=== PATIENT | male | born 1960 | race Caucasian/White ===

== ENCOUNTER 2017-02-12 15:16 | Emergency (ER) | payer OTHER ==
[~2017-02-12] VITALS: Ht 193 cm; Wt 114.0 kg
[2017-02-12 15:47] VITALS: BP 156/83; PULSE 76; RESP 16; TEMP 99; O2SAT 97
[2017-02-12] MEDS ORDERED: DOXY100C PO (16:31)
[2017-02-12] MEDS ORDERED: TYLETAB34 PO (16:31)
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
[2017-02-12] MEDS ORDERED: GLIM4TAB PO (17:14)
[2017-02-12] MEDS ORDERED: PRED5TAB PO (17:14)
[2017-02-12] MEDS ORDERED: MYCO250 PO (17:14)
[2017-02-12] MEDS ORDERED: TACR5CAP PO (17:14)
== END 2017-02-12 17:18 | disposition home or self-care (01) ==
LOC: PHED 15:16
DX: T24.009A Burn of unspecified degree of unspecified site of unspecified lower limb, except ankle and foot, initial encounter (principal); X58.XXXA Exposure to other specified factors, initial encounter
CPT/HCPCS: 99284

== ENCOUNTER 2017-06-11 15:29 | Emergency (ER) | payer OTHER ==
[~2017-06-11] VITALS: Ht 193 cm; Wt 115.0 kg
[~2017-06-11 15:29] MED LIST: DOXY100C PO; GLIM4TAB PO; MYCO250 PO; PRED5TAB PO; TACR5CAP PO; TYLETAB34 PO
[2017-06-11 15:50] VITALS: BP 131/67; PULSE 112; RESP 16; TEMP 99.1; O2SAT 98
--- NOTE | 2017-06-11 16:44 | PD ---
HPI Chief Complaint: Cold / Flu Symptoms Time Seen by Provider: 16:27 Travel History International Travel<30 days: No Contact w/Intl Traveler<30days: No Traveled to known affect area: No History of Present Illness HPI 57yo M with PMH of kidney transplant 2001 on cellcept and tacrolimus, DM here with c/o fever of 101F today. Pt had generalized bodyaches and cough. + Dysuria. Also with abdominal pain yesterday and vomiting yesterday along with nonbloody diarrhea. Had headache earlier today that was relieved by tylenol at 1:30pm. Denies any chest pain, sob, focal weakness or numbness or visual changes. Pt took 1 dose of tamiflu and 1 dose of cipro today because his transplant team gave him the medication to start whenever he feels like he is having flu like symptoms and to come to the ED. Pt follows with transplant team from [facility] in [place]. PFSH Past Medical History Diabetes: Yes Patient Takes Glucophage: No Genitourinary: Yes (polycystic kidney disease, bilat nephrectomy, r kidne transplant) Inguinal Hernia: Yes (left) Implanted Vascular Access Dvce: Yes (pt had left lower arm fistula for dialysis ) Tetanus Vaccination: > 5 Years Influenza Vaccination: No Social History Alcohol Use: Yes (OCCASIONAL) Tobacco Use: No Substance Use: No Allergies-Medications (Allergen,Severity, Reaction): Coded Allergies: cefaclor (Verified Allergy, Unknown, Rash, 06/11/17) iodine (Verified Allergy, Unknown, 06/11/17) Reported Meds & Prescriptions Reported Meds & Active Scripts Active Tylenol (Acetaminophen) 325 Mg Tab 650 Mg PO Q6H PRN Tylenol-Codeine #3 (Acetaminophen-Codeine) 300-30 mg Tab 1 Tab PO Q6HR PRN Doxycycline Hyclate 100 Mg Cap 100 Mg PO BID Reported Prograf (Tacrolimus) 5 Mg Cap 5 Mg PO BID Prograf (Tacrolimus) 0.5 Mg Cap 0.5 Mg PO DAILY Sulfamethoxazole-Trimethoprim 800-160 Mg Tab 1 Tab PO BID Tacrolimus 5 Mg Cap 5 Mg PO Q12H Glimepiride 4 Mg Tab 4 Mg PO DAILY Take with breakfast or first main meal Cellcept (Mycophenolate Mofetil) 250 Mg Cap 750 Mg PO BID Prednisone 5 Mg Tab 5 Mg PO DAILY Review of Systems Except as stated in HPI: all other systems reviewed are Neg Physical Exam Narrative GENERAL: 57yo M in mild distress. SKIN: Focused skin assessment warm/dry. HEAD: Atraumatic. Normocephalic. EYES: Pupils equal and round. EOMI. ENT: No nasal bleeding or discharge. Mucous membranes pink and moist. NECK: No nuchal rigidity. CARDIOVASCULAR: Regular rate and rhythm. No murmur appreciated. RESPIRATORY: No accessory muscle use. Clear to auscultation. Breath sounds equal bilaterally. GASTROINTESTINAL: Abdomen soft, +TTP epigastric region. No rebound tenderness or guarding. MUSCULOSKELETAL: No obvious deformities. No clubbing. No cyanosis. No edema. NEUROLOGICAL: Awake and alert. No obvious cranial nerve deficits. Motor grossly within normal limits. Normal speech. PSYCHIATRIC: Appropriate mood and affect; insight and judgment normal. Data Data Last Documented VS Vital Signs Date Time Temp Pulse Resp B/P (MAP) Pulse Ox O2 Delivery O2 Flow Rate FiO2 06/11/17 19:49 91 18 133/73 (93) 99 06/11/17 19:02 Room Air 06/11/17 18:26 98.6 Orders Orders Blood Culture (06/11/17 16:38) Complete Blood Count With Diff (06/11/17 16:38) Basic Metabolic Panel (Bmp) (06/11/17 16:38) Act Partial Throm Time (Ptt) (06/11/17 16:38) Prothrombin Time / Inr (Pt) (06/11/17 16:38) Lactic Acid Sepsis Protocol (06/11/17 16:38) Urinalysis - C+S If Indicated (06/11/17 16:38) Chest, Single Ap (06/11/17 ) Ct Abd/Pel W/O Iv Contrast (06/11/17 ) Influenzae A/B Antigen (06/11/17 16:38) Sodium Chlor 0.9% 1000 Ml Inj (Ns 1000 M (06/11/17 16:45) Ed Discharge Order (06/11/17 19:37) Labs Laboratory Tests Test 06/11/17 17:00 06/11/17 18:40 White Blood Count 7.5 TH/MM3 Red Blood Count 5.36 MIL/MM3 Hemoglobin 15.8 GM/DL Hematocrit 47.4 % Mean Corpuscular Volume 88.4 FL Mean Corpuscular Hemoglobin 29.4 PG Mean Corpuscular Hemoglobin Concent 33.3 % Red Cell Distribution Width 13.9 % Platelet Count 131 TH/MM3 Mean Platelet Volume 9.4 FL Neutrophils (%) (Auto) 91.3 % Lymphocytes (%) (Auto) 2.8 % Monocytes (%) (Auto) 5.6 % Eosinophils (%) (Auto) 0.2 % Basophils (%) (Auto) 0.1 % Neutrophils # (Auto) 6.9 TH/MM3 Lymphocytes # (Auto) 0.2 TH/MM3 Monocytes # (Auto) 0.4 TH/MM3 Eosinophils # (Auto) 0.0 TH/MM3 Basophils # (Auto) 0.0 TH/MM3 CBC Comment DIFF FINAL Differential Comment Prothrombin Time 10.8 SEC Prothromb Time International Ratio 1.1 RATIO Activated Partial Thromboplast Time 26.8 SEC Blood Urea Nitrogen 30 MG/DL Creatinine 2.00 MG/DL Random Glucose 258 MG/DL Calcium Level 8.4 MG/DL Sodium Level 135 MEQ/L Potassium Level 4.1 MEQ/L Chloride Level 103 MEQ/L Carbon Dioxide Level 23.6 MEQ/L Anion Gap 8 MEQ/L Estimat Glomerular Filtration Rate 35 ML/MIN Lactic Acid Level 1.7 mmol/L Urine Color YELLOW Urine Turbidity CLEAR Urine pH 6.0 Urine Specific [place] 1.028 Urine Protein 100 mg/dL Urine Glucose (UA) 500 mg/dL Urine Ketones TRACE mg/dL Urine Occult Blood TRACE Urine Nitrite NEG Urine Bilirubin NEG Urine Leukocyte Esterase NEG Urine RBC 0-3 /hpf Urine WBC 0-2 /hpf Urine Squamous Epithelial Cells 0-5 /hpf Microscopic Urinalysis Comment CULT NOT INDICATED MDM Medical Decision Making Medical Screen Exam Complete: Yes Emergency Medical Condition: Yes Differential Diagnosis Influenza vs. pneumonia vs. UTI vs. colitis Narrative Course 57yo M with kidney transplant here with flu like symptoms. Temp is 99.1F here. Initially mildly tachycardic at 112. Labs reviewed, no leukocytosis. Mild thrombocytopenia at 131. No prior to compare. Lactic acid 1.7. BUN/ creatinine 30/2.0. Pt said his baseline is 1.7-1.9 so 2.0 is normal for him and he has had that before. Glucose elevated at 258. Normal anion gap. CT a/ p showed bilateral nephrectomy with transplant kidney in right side of pelvis. Low attenuation lesion in right lobe of liver that is nonspecific. Informed pt to follow up with outpatient studies. Pt given NS IVF and HR has improved to 87bpm. CXR negative. Influenza negative. UA negative for leukocyte. WBC 0- 2. Pt given NS IVF. Pt reevaluated at bedside and said he is feeling better. Pt has no fever here and it has been over 6 hours since he last took an antipyretic. He is nontoxic appearing and wants to go home. Pt tolerating PO. Strict return precautions given. Diagnosis Primary Impression: Dehydration Patient Instructions: General Instructions Departure Forms: Tests/Procedures Additional Instructions: Please follow up with a primary care physician in 2-3 days. Please return to the ED if you are having fever. Med/Other Pt SpecificInfo: Prescription(s) given Scripts Acetaminophen (Tylenol) 325 Mg Tab 650 MG PO Q6H Y for FEVER, #20 TAB 0 Refills Prov: Le Ledesma DO 06/11/17 Disposition: 01 DISCHARGE HOME Condition: Stable Le Ledesma DO Jun 11, 2017 16:44
[2017-06-11] MEDS ORDERED: SODIUM CHLOR 0.9% 1000 ML INJ 1,000 ML IV ONE (16:45)
--- NOTE | 2017-06-11 17:15 | RADRPT ---
EXAM DATE/TIME: 06/11/2017 16:52 [facility] COMPARISON: No previous studies available for comparison. INDICATIONS : Fever, cough. MEDICAL HISTORY : Polycystic kidney disease. SURGICAL HISTORY : Right kidney transplant. ENCOUNTER: Initial ACUITY: 1 day PAIN SCORE: 0/10 LOCATION: Bilateral chest FINDINGS: A single view of the chest demonstrates the lungs to be symmetrically aerated without evidence of mas s, infiltrate or effusion. The cardiomediastinal contours are unremarkable. Osseous structures are intact. CONCLUSION: No acute disease. There is no evidence of pneumonia. Michael Boles MD on June 11, 2017 at 17:12 Board Certified Radiologist. This report was verified electronically.
--- NOTE | 2017-06-11 17:24 | RADRPT ---
EXAM DATE/TIME: 06/11/2017 17:08 [facility] COMPARISON: No previous studies available for comparison. INDICATIONS : Epigastric pain and bodyache with vomiting and diarrhea. ORAL CONTRAST: No oral contrast ingested. RADIATION DOSE: 20.79 CTDIvol (mGy) MEDICAL HISTORY : Hernia, inguinal. Polycystic kidney disease. Diabetes. SURGICAL HISTORY : Nephrectomy, left. Nephrectomy, right.Right kidney transplant. ENCOUNTER: Initial ACUITY: 3 days PAIN SCALE: 4/10 LOCATION: upper quadrant abdomen TECHNIQUE: Volumetric scanning of the abdomen and pelvis was performed. Using automated exposure control and ad justment of the mA and/or kV according to patient size, radiation dose was kept as low as reasonably achievable to obtain optimal diagnostic quality images. DICOM format image data is available electro nically for review and comparison. FINDINGS: LOWER LUNGS: The visualized lower lungs are clear. LIVER: Homogeneous density with ill-defined low-attenuation lesion in the central right lobe of the liver me asuring up to approximately 4 cm. There is no dilation of the biliary tree. No calcified gallstones. SPLEEN: Normal size without lesion. PANCREAS: Within normal limits. KIDNEYS: The patient is status post bilateral nephrectomy with postsurgical changes and scarring. There is a t ransplant kidney in the right side of the pelvis is unremarkable on this noncontrast study. ADRENAL GLANDS: Within normal limits. VASCULAR: There is no aortic aneurysm. BOWEL/MESENTERY: The stomach, small bowel, and colon demonstrate no acute abnormality. Multiple diverticuli are prese nt greatest in the sigmoid colon. There is no free intraperitoneal air or fluid. ABDOMINAL WALL: Postsurgical changes are noted status post hernia repair. There is no evidence of recurrent hernia RETROPERITONEUM: There is no lymphadenopathy. BLADDER: No wall thickening or mass. REPRODUCTIVE: Within normal limits. INGUINAL: There is no lymphadenopathy or hernia. MUSCULOSKELETAL: Within normal limits for patient age. CONCLUSION: 1. Status post bilateral nephrectomy with transplant kidney in the right side of the pelvis. 2. Moderate diverticulosis with no inflammatory change. 3. Low attenuation lesion in the central right lobe of the liver which is nonspecific. This could rep resent a cavernous hemangioma or other lesion. Further evaluation with outpatient contrast-enhanced C T or MRI would be recommended. Michael Boles MD on June 11, 2017 at 17:18 Board Certified Radiologist. This report was verified electronically.
[2017-06-11 17:25] LABS: CALCIUM 8.4 MG/DL (8.5-10.1)
[2017-06-11 17:26] LABS: BICARBONATE 23.6 MEQ/L (21.0-32.0)
[2017-06-11 17:28] LABS: INTERNATIONAL NORMALIZED RATIO 1.1 RATIO; PROTHROMBIN TIME - PATIENT 10.8 SEC (9.8-11.6)
[2017-06-11 17:31] VITALS: BP 116/72; PULSE 87; RESP 16; TEMP 99.1; O2SAT 97
[2017-06-11 17:32] VITALS: BP 116/72; PULSE 87; RESP 16; TEMP 99.1; O2SAT 97
[2017-06-11 17:38] LABS: AUTOMATED NEUTROPHIL # 6.9 TH/MM3 (1.8-7.7); BASOPHIL % 0.1 % (0.0-2.0); EOSINOPHIL % 0.2 % (0.0-4.0); HEMATOCRIT 47.4 % (39.0-51.0); HEMOGLOBIN 15.8 GM/DL (13.0-17.0); LYMPH % 2.8 % (9.0-44.0); LYMPHOCYTE # 0.2 TH/MM3 (1.0-4.8); MEAN CELL VOLUME 88.4 FL (80.0-100.0); MEAN CORPUSCULAR HEMOGLOBIN 29.4 PG (27.0-34.0); MEAN CORPUSCULAR HGB CONC 33.3 % (32.0-36.0); MEAN PLATELET VOLUME 9.4 FL (7.0-11.0); MONO % 5.6 % (0.0-8.0); MONOCYTE # 0.4 TH/MM3 (0-0.9); NEUT % 91.3 % (16.0-70.0); PLATELET COUNT 131 TH/MM3 (150-450); RED BLOOD COUNT 5.36 MIL/MM3 (4.50-5.90); RED CELL DISTRIBUTION WIDTH 13.9 % (11.6-17.2); WHITE BLOOD COUNT 7.5 TH/MM3 (4.0-11.0)
[2017-06-11] MEDS ORDERED: TACR0.5 PO (17:58)
[2017-06-11] MEDS ORDERED: SULF1TAB23 PO (17:58)
[2017-06-11] MEDS ORDERED: TACR5 PO (17:58)
[2017-06-11 18:26] VITALS: BP 144/75; PULSE 85; RESP 16; TEMP 98.6; O2SAT 96
[2017-06-11 19:02] VITALS: BP 133/77; PULSE 84; RESP 18; O2SAT 98
[2017-06-11 19:06] LABS: BILIRUBIN, URINE NEG (NEG); BLOOD, URINE TRACE (NEG); GLUCOSE,URINE 500 mg/dL (NEG); KETONE, URINE TRACE mg/dL (NEG); NITRITE,URINE NEG (NEG); URINE LEUKOCYTE ESTERASE NEG (NEG)
[2017-06-11 19:22] LABS: RBC, URINE 0-3 /hpf (0-3); SQUAMOUS EPITHELIAL CELL URINE 0-5 /hpf (0-5); URINE COLOR YELLOW (YELLW/STRAW); WBC, URINE 0-2 /hpf (0-5)
[2017-06-11] MEDS ORDERED: TYLE325T PO (19:37)
[2017-06-11 19:49] VITALS: BP 133/73
== END 2017-06-11 20:04 | disposition home or self-care (01) ==
LOC: PHED 15:29
DX: E86.0 Dehydration (principal); E11.9 Type 2 diabetes mellitus without complications; Q61.3 Polycystic kidney, unspecified; Z90.5 Acquired absence of kidney; Z94.0 Kidney transplant status; Z99.2 Dependence on renal dialysis; Z88.8 Allergy status to other drugs, medicaments and biological substances; Z79.899 Other long term (current) drug therapy
CPT/HCPCS: 71045; 74176; 80048; 81001; 83605; 85025; 85610; 85730; 87040; 87804; 96360; 99285; J7030

== ENCOUNTER 2018-04-29 00:19 | Inpatient (IN) ==
[2018-04-29] MEDS ORDERED: Acetaminophen 325 MG Tablet PO ONE (01:01)
[2018-04-29] MEDS ORDERED: Sod Chloride 0.9% Inj 1,000 ML IV.SIG SCH (01:15)
--- NOTE | 2018-04-29 01:31 | XR ---
EXAM DATE: 04/29/2018 1:19 AM EST AGE/SEX: 58 years / Male INDICATIONS: Fever and cough. CLINICAL DATA: This is the patient's initial encounter. Patient reports that signs and symptoms have been present for 1 week and indicates a pain score of 0/10. MEDICAL/SURGICAL HISTORY: None. None. COMPARISON: [facility], CHEST SINGLE AP, 06/11/2017. . FINDINGS: A single AP view of the chest demonstrates the lungs to be symmetrically aerated without evidence of mass, infiltrate or effusion. The cardiomediastinal contours are unremarkable. Osseous structures a re intact. CONCLUSION: The lungs are clear. Electronically signed by: Chalo Guillen MD Board Certified Radiologist 04/29/2018 1:30 AM EST
[2018-04-29 01:42] LABS: Bilirubin,Urine Negative (Negative); Clarity,Urine Clear (Clear); Color,Urine Yellow (Yellw/Straw); Leukocyte Esterase,Urine Negative (Negative); Nitrite,Urine Negative (Negative); Urobilinogen,Urine 0.2 mg/dL (Less than 2)
[2018-04-29 01:43] LABS: Baso # (Auto) 0.1 th/mm3 (0.0-0.2); Baso % (Auto) 1.9 % (0.0-2.0); Eos % (Auto) 0.2 % (0.0-4.0); Hematocrit 39.6 % (39.0-51.0); Lymph # (Auto) 0.2 th/mm3 (1.0-4.8); Lymph % (Auto) 4.5 % (9.0-44.0); Mean Corpuscular HGB Conc 32.9 % (32.0-36.0); Mean Corpuscular Hemoglobin 28.1 pg (27.0-34.0); Mean Corpuscular Volume 85.6 fL (80.0-100.0); Mean Platelet Volume 9.3 fL (7.0-11.0); Mono # (Auto) 0.3 th/mm3 (0.0-0.9); Mono % (Auto) 5.2 % (0.0-8.0); Neut # (Auto) 4.9 th/mm3 (1.8-7.7); Neut % (Auto) 88.2 % (16.0-70.0); Platelet Count 207 th/mm3 (150-450); Red Blood Count 4.63 mil/mm3 (4.50-5.90); Red Cell Distribution Width 13.5 % (11.6-17.2); White Blood Count 5.5 th/mm3 (4.0-11.0)
[2018-04-29 01:53] LABS: Squamous Epithelial Cell,Urine 0-5 /hpf (0-5); WBC,Urine 0-5 /hpf (0-5)
[2018-04-29 02:24] LABS: Chloride 99 meq/L (98-107); Potassium 4.2 meq/L (3.5-5.1); Sodium 131 meq/L (136-145)
[2018-04-29 02:28] LABS: Albumin 2.9 g/dL (3.4-5.0); Anion Gap 10 meq/L (5-15); Blood Urea Nitrogen 24 mg/dL (7-18); Calcium 7.7 mg/dL (8.5-10.1); Carbon Dioxide 21.6 meq/L (21.0-32.0); Glucose,Random 299 mg/dL (74-106); Magnesium 1.8 mg/dL (1.5-2.5)
[2018-04-29 02:31] LABS: Alanine Aminotransferase 34 U/L (12-78); Aspartate Aminotransferase 21 U/L (15-37); Glomerular Filtration Rate 30 mL/min (>89)
[2018-04-29 02:33] LABS: Total Protein 6.3 g/dL (6.4-8.2)
[2018-04-29 02:34] LABS: Activated Partial Thrombo Time 30.8 sec (23.4-31.7); Alkaline Phosphatase 102 U/L (45-117); INR 1.1 Ratio; Prothrombin Time 11.1 sec (9.8-11.6)
[2018-04-29 02:35] LABS: Creatine Kinase 62 U/L (39-308)
[2018-04-29 02:57] LABS: Troponin I 1.11 ng/mL (0.02-0.05)
[2018-04-29] MEDS: Sod Chloride 0.9% Inj 1,000 ML IV.SIG SCH ×2 (03:07→05:05)
[2018-04-29] MEDS ORDERED: Mycophenolate Mofetil 250 MG Capsule PO ONE (03:10)
[2018-04-29] MEDS ORDERED: Bisacodyl 10 MG Supp RECTAL PRN (03:39)
[2018-04-29] MEDS ORDERED: Morphine Inj 4 MG/ML Vial IV.PUSH PRN (03:40)
[2018-04-29] MEDS ORDERED: Dextrose 50% in Water 50 ML Vial IV.PUSH PRN ×2 (03:41→12:56)
[2018-04-29] MEDS ORDERED: Sod Chloride 0.9% Inj 1,000 ML IV.CONT SCH (03:45)
--- NOTE | 2018-04-29 03:51 | ED ---
HPI General Chief Complaint: Fever Stated Complaint: FEVER X1 WK Time Seen by Provider: 04/29/18 01:01 Source: patient Mode of arrival: ambulatory History of Present Illness HPI Narrative: 58-year-old male presents to the emergency department for complaint of fever chills cough and congestion. Patient has had symptoms times 1 week. Patient states he recently traveled to [place] and during that trip suffered a myocardial infarction. Patient underwent cardiac catheterization with angioplasty and stent placement. Patient subsequently identified that he developed a cough and fever went to have another hospital after he had been discharged and evaluation there showed no source of fever and patient was discharged with paperwork. Patient continued to have ongoing and worsening symptoms and presents at this time for fever that awakened him from sleep. Patient has not had any recurrence of his crushing chest pain that he experienced approximately 10 days ago associated with his myocardial infarction. Patient was told that time that he had very high troponin level. Patient also reports that he is diabetic and is a renal transplant recipient. Patient states that because of persistent and worsening fever presents now for further variation. Patient has had cough that is primarily nonproductive does not recall any yellow-green sputum production has had some sinus drainage no shortness of breath no pleuritic chest pain. Patient does not report nausea vomiting abdominal pain or diarrhea. Patient's had no dysuria frequency urgency or flank pain. Patient has been taking acetaminophen for fever control but will not take NSAIDs due to his renal transplant. MD complaint: Reports fever and weakness Onset (ago): week(s) (1) Maximum Temperature: 103 F Temperature Source: oral Context: Reports recent travel, recent procedure and on immunosuppressant(s) ( renal transplant 2001 --ceelcept prograf); Denies other(s) with similar symptoms , recent antibiotic use and on chemotherapy Associated symptoms: Reports chills, nasal congestion and cough; Denies rigors, myalgias, headache, rhinorrhea, sore throat, stiff neck, chest pain, shortness of breath, abdominal pain, nausea, vomiting, diarrhea, dysuria, rash, confusion , night sweats and weight loss Relieving factors: acetaminophen Exacerbating factors: nothing Treatments prior to arrival fever: Reports acetaminophen Related Data Home Medications Medication Instructions Recorded Confirmed aspirin 81 mg PO DAILY 04/29/18 04/29/18 atorvastatin 80 mg PO QPM 04/29/18 04/29/18 clopidogrel [Plavix] 75 mg PO DAILY 04/29/18 04/29/18 glimepiride 1 mg PO QID 04/29/18 04/29/18 insulin degludec [Tresiba 10 unit SUBCUT DAILY 04/29/18 04/29/18 FlexTouch U-100] metoprolol tartrate 50 mg PO DAILY 04/29/18 04/29/18 multivitamin 1 cap PO QAM 04/29/18 04/29/18 mycophenolate mofetil [CellCept] 750 mg PO BID 04/29/18 04/29/18 prednisone 5 mg PO DAILY 04/29/18 04/29/18 tacrolimus [Prograf] 5 mg PO Q12H 04/29/18 04/29/18 Allergies Allergy/AdvReac Type Severity Reaction Status Date / Time cefaclor Allergy Unknown Rash Verified 04/29/18 00:38 iodine Allergy Unknown Flushing Verified 04/29/18 00:38 Review of Systems ROS: all other systems reviewed are negative PMFSH History History Provided By: Patient ( recent myocardial infarction with angioplasty and stent placementMI, polycystic kidney, diabetes) Medical History Medical History Hx of myocardial infarction (Acute) Surgical History Surgical History H/O angioplasty (Acute) Hx of kidney transplant (Acute) Stented coronary artery (Acute) Social History Social History Substance History: No History of Abuse Second Hand Smoke Exposure: No Smoking Status: Never smoker How Often Do You Have a Drink Containing Alcohol: Never Recent Travel in [facility] within the Last 8 Weeks: Yes Recent Out of Country Travel within the Last 8 Weeks: No Immunization History Tetanus Immunization: Unsure Exam Narrative Exam Narrative: GENERAL: Well-nourished, well-developed patient, no acute distress no respiratory distress with temperature 101.4F SKIN: Focused skin assessment warm/dry. HEAD: Normocephalic. EYES: No scleral icterus. No injection or drainage. NECK: Supple, trachea midline. No JVD or lymphadenopathy. CARDIOVASCULAR: Regular rate and rhythm without murmurs, gallops, or rubs. RESPIRATORY: Breath sounds equal bilaterally. No accessory muscle use. GASTROINTESTINAL: Abdomen soft, non-tender, nondistended. MUSCULOSKELETAL: No cyanosis, or edema. BACK: Nontender without obvious deformity. No CVA tenderness. Course Initial Documented Vital Signs Temperature 101.4 F H 04/29/18 00:39 Pulse Rate 92 H 04/29/18 00:39 Respiratory Rate 20 04/29/18 00:39 Blood Pressure 153/88 H 04/29/18 00:39 Pulse Oximetry 95 04/29/18 00:39 Last Documented Vital Signs Temperature 103.0 F H 04/29/18 02:35 Pulse Rate 93 H 04/29/18 02:35 Respiratory Rate 18 04/29/18 02:35 Blood Pressure 100/62 04/29/18 02:35 Pulse Oximetry 100 04/29/18 02:35 Medical Decision Making MDM Narrative Medical decision making narrative: Patient placed on monitor IV access obtained specimens collected and sent for resulting patient administered IV fluids p.o. Tylenol and after cultures obtained IV antibiotics CBC with automated differential patient does show left shift by automated differential normal total white cell count chemistries show worsening renal function patient states baseline creatinine is 1.8 currently 2.3 urinalysis shows glucosuria but no obvious source of infection and chest x-ray shows no lobar infiltrate EKG sinus rhythm with nonspecific ischemic changes no acute no acute ST elevation, patient status post recent W[place] and reports very elevated troponin levels present troponin is 1.11 most likely consistent with trending downward troponin level CK is in normal range at 62 patient has no current chest pain and states no symptoms at this time consistent with previous recent WV. Lactic acid is not elevated at 1.2; repeat temperature has increased to 103 F Patient's case discussed with medicine service regarding admission for ongoing IV antibiotic. Medical Screen Exam Complete: Yes Emergency Medical Condition: Yes Differential Diagnosis Differential Diagnosis: Febrile illness, viral syndrome, influenza, pneumonia, sinusitis, UTI, sepsis, angina, WV, dehydration, uncontrolled diabetes Medical Records Medical records reviewed: Yes I reviewed the patient's medical records. Lab Data Lab results reviewed: Yes I reviewed the patient's lab results. Result diagrams: 04/29/18 01:14 04/29/18 02:10 Lab Results 04/29/18 04/29/18 04/29/18 Range/Units 01:14 01:14 02:10 CBC w Diff Auto diff final WBC 5.5 (4.0-11.0) th/mm3 RBC 4.63 (4.50-5.90) mil/mm3 Hgb 13.0 (13.0-17.0) gm/dL Hct 39.6 (39.0-51.0) % MCV 85.6 (80.0-100.0) fL MCH 28.1 (27.0-34.0) pg MCHC 32.9 (32.0-36.0) % RDW 13.5 (11.6-17.2) % Plt Count 207 (150-450) th/mm3 MPV 9.3 (7.0-11.0) fL Neut % (Auto) 88.2 H (16.0-70.0) % Lymph % (Auto) 4.5 L (9.0-44.0) % Hudson % (Auto) 5.2 (0.0-8.0) % Eos % (Auto) 0.2 (0.0-4.0) % Baso % (Auto) 1.9 (0.0-2.0) % Neut # (Auto) 4.9 (1.8-7.7) th/mm3 Lymph # (Auto) 0.2 L (1.0-4.8) th/mm3 Hudson # (Auto) 0.3 (0.0-0.9) th/mm3 Eos # (Auto) 0.0 (0.0-0.4) th/mm3 Baso # (Auto) 0.1 (0.0-0.2) th/mm3 WBC Differential . Differential Comment . PT 11.1 (9.8-11.6) sec INR 1.1 Ratio APTT 30.8 (23.4-31.7) sec Sodium (136-145) meq/L Potassium (3.5-5.1) meq/L Chloride (98-107) meq/L Carbon Dioxide (21.0-32.0) meq/L Anion Gap (5-15) meq/L BUN (7-18) mg/dL Creatinine (0.60-1.30) mg/dL Estimated GFR (>89) mL/min Random Glucose (74-106) mg/dL Lactic Acid (0.4-2.0) mmol/L Calcium (8.5-10.1) mg/dL Magnesium (1.5-2.5) mg/dL Total Bilirubin (0.2-1.0) mg/dL AST (15-37) U/L ALT (12-78) U/L Alkaline Phosphatase (45-117) U/L Total Creatine Kinase (39-308) U/L Troponin I (0.02-0.05) ng/mL Total Protein (6.4-8.2) g/dL Albumin (3.4-5.0) g/dL Urine Color Yellow (Yellw/Straw) Urine Clarity Clear (Clear) Urine pH 6.0 (5.0-8.5) Ur Specific Cullen 1.010 (1.002-1.035) Urine Protein 30 H (Neg-Trace) mg/dL Urine Glucose (UA) 1000 or greater H (Negative) mg/dL Urine Ketones Negative (Negative) mg/dL Urine Occult Blood Small H (Negative) Urine Nitrate Negative (Negative) Urine Bilirubin Negative (Negative) Urine Urobilinogen 0.2 (Less than 2) mg/dL Ur Leukocyte Esterase Negative (Negative) Urine RBC 4-15 H (0-3) /hpf Urine WBC 0-5 (0-5) /hpf Ur Squamous Epith Cells 0-5 (0-5) /hpf Micro UA Comment Culture not ind Ur Microscopic Review Microscopic reviewed Urine Culture Comments Culture not ind 04/29/18 04/29/18 Range/Units 02:10 02:10 CBC w Diff WBC (4.0-11.0) th/mm3 RBC (4.50-5.90) mil/mm3 Hgb (13.0-17.0) gm/dL Hct (39.0-51.0) % MCV (80.0-100.0) fL MCH (27.0-34.0) pg MCHC (32.0-36.0) % RDW (11.6-17.2) % Plt Count (150-450) th/mm3 MPV (7.0-11.0) fL Neut % (Auto) (16.0-70.0) % Lymph % (Auto) (9.0-44.0) % Hudson % (Auto) (0.0-8.0) % Eos % (Auto) (0.0-4.0) % Baso % (Auto) (0.0-2.0) % Neut # (Auto) (1.8-7.7) th/mm3 Lymph # (Auto) (1.0-4.8) th/mm3 Hudson # (Auto) (0.0-0.9) th/mm3 Eos # (Auto) (0.0-0.4) th/mm3 Baso # (Auto) (0.0-0.2) th/mm3 WBC Differential Differential Comment PT (9.8-11.6) sec INR Ratio APTT (23.4-31.7) sec Sodium 131 L (136-145) meq/L Potassium 4.2 (3.5-5.1) meq/L Chloride 99 (98-107) meq/L Carbon Dioxide 21.6 (21.0-32.0) meq/L Anion Gap 10 (5-15) meq/L BUN 24 H (7-18) mg/dL Creatinine 2.30 H (0.60-1.30) mg/dL Estimated GFR 30 L (>89) mL/min Random Glucose 299 H (74-106) mg/dL Lactic Acid 1.2 (0.4-2.0) mmol/L Calcium 7.7 L (8.5-10.1) mg/dL Magnesium 1.8 (1.5-2.5) mg/dL Total Bilirubin 0.7 (0.2-1.0) mg/dL AST 21 (15-37) U/L ALT 34 (12-78) U/L Alkaline Phosphatase 102 (45-117) U/L Total Creatine Kinase 62 (39-308) U/L Troponin I 1.11 H* (0.02-0.05) ng/mL Total Protein 6.3 L (6.4-8.2) g/dL Albumin 2.9 L (3.4-5.0) g/dL Urine Color (Yellw/Straw) Urine Clarity (Clear) Urine pH (5.0-8.5) Ur Specific Cullen (1.002-1.035) Urine Protein (Neg-Trace) mg/dL Urine Glucose (UA) (Negative) mg/dL Urine Ketones (Negative) mg/dL Urine Occult Blood (Negative) Urine Nitrate (Negative) Urine Bilirubin (Negative) Urine Urobilinogen (Less than 2) mg/dL Ur Leukocyte Esterase (Negative) Urine RBC (0-3) /hpf Urine WBC (0-5) /hpf Ur Squamous Epith Cells (0-5) /hpf Micro UA Comment Ur Microscopic Review Urine Culture Comments Imaging Data Radiologist's impression: Chest X-Ray 04/29/18 01:01 CONCLUSION: The lungs are clear. ECG Data EKG Prior to Arrival: No Attestation: I personally reviewed and interpreted this ECG as follows: (EKG: sinus rhythm rate 100 w/ lateral ST-T changes no ST elevation) Discharge Plan Discharge Disposition Patient Disposition: ED Admit(ED Internal Use Only) Discharge Condition Condition: Stable Discharge Order Discharge Orders: ED Use Only Admit Order (Routine); Ordered 04/29/18 Ordered By: Zaida Berrios Discharge Details Diagnosis: Acute febrile illness, SIRS (systemic inflammatory response syndrome), Renal transplant recipient, Diabetes, Recent myocardial infarction Physicians Team ED Provider: Zaida Berrios Primary Care Provider: Primary Care Lorraine Baldwin Attending Provider: Lacy Peng Discharge Interventions Interventions: Vital Signs Last Done: 04/29/18 02:35 Status ED Status: Admitted Patient
[2018-04-29] MEDS: Acetaminophen 325 MG Tablet PO PRN ×3 (06:33→20:26)
[2018-04-29] MEDS: Insulin NovoLOG Aspart Correctional Sugar Inj SQ SCH ×4 (08:32→20:31)
[2018-04-29] MEDS ORDERED: Senna/Docusate Sodium 8.6/50 MG Tablet PO SCH (09:00)
[2018-04-29] MEDS: Metoprolol Tartrate 50 MG Tablet PO SCH (09:11)
[2018-04-29] MEDS: Mycophenolate Mofetil 250 MG Capsule PO SCH ×2 (09:11→20:23)
[2018-04-29] MEDS: predniSONE 5 MG Tablet PO SCH (09:12)
[2018-04-29 14:18] LABS: Baso % (Auto) 0.3 % (0.0-2.0); Eos % (Auto) 0.1 % (0.0-4.0); Hematocrit 30.3 % (39.0-51.0); Hemoglobin 10.3 gm/dL (13.0-17.0); Lymph # (Auto) 0.4 th/mm3 (1.0-4.8); Lymph % (Auto) 5.5 % (9.0-44.0); Mean Corpuscular HGB Conc 34.1 % (32.0-36.0); Mean Corpuscular Hemoglobin 30.4 pg (27.0-34.0); Mean Corpuscular Volume 89.3 fL (80.0-100.0); Mean Platelet Volume 8.6 fL (7.0-11.0); Mono # (Auto) 0.6 th/mm3 (0.0-0.9); Mono % (Auto) 8.6 % (0.0-8.0); Neut # (Auto) 5.4 th/mm3 (1.8-7.7); Neut % (Auto) 85.5 % (16.0-70.0); Platelet Count 130 th/mm3 (150-450); Red Blood Count 3.39 mil/mm3 (4.50-5.90); White Blood Count 6.4 th/mm3 (4.0-11.0)
[2018-04-29] MEDS ORDERED: Vancomycin Consult Pharmacy OTHER PRN (14:26)
[2018-04-29 14:35] LABS: Alanine Aminotransferase 31 U/L (12-78); Albumin 2.4 g/dL (3.4-5.0); Anion Gap 10 meq/L (5-15); Aspartate Aminotransferase 21 U/L (15-37); Blood Urea Nitrogen 22 mg/dL (7-18); Calcium 7.5 mg/dL (8.5-10.1); Carbon Dioxide 20.2 meq/L (21.0-32.0); Chloride 104 meq/L (98-107); Glomerular Filtration Rate 30 mL/min (>89); Glucose,Random 271 mg/dL (74-106); Potassium 4.4 meq/L (3.5-5.1); Sodium 134 meq/L (136-145)
[2018-04-29 14:39] LABS: Alkaline Phosphatase 92 U/L (45-117); Total Protein 5.7 g/dL (6.4-8.2)
[2018-04-29] MEDS: Enoxaparin Inj 40 MG/0.4 ML Syringe SQ SCH (14:40)
[2018-04-29] MEDS: Sod Chloride 0.9% Inj 1,000 ML IV.CONT SCH ×2 (14:41→23:34)
[2018-04-29 14:59] LABS: Creatine Kinase 56 U/L (39-308)
--- NOTE | 2018-04-29 15:40 | P.HPIM ---
History of Present Illness Primary Care Physician: No Primary Care Physician Chief Complaint: fever History of Present Illness: 58-year-old gentleman with history of renal transplant presents to the emergency room with fever and chills. Patient states he had been traveling in [place] last week went to the emergency room with chest pain found to have non-STEMI underwent cardiac catheterization with balloon angioplasty and stenting of LAD. During that time he had a Houser catheter placed and removed prior to discharge. About 3 days later he started having low-grade fever chills, was seen in the emergency room workup was unremarkable and discharged home without any antibiotics. His symptoms continued to progress with dysuria, no abdominal pain no nausea vomiting, occasional cough, mild congestion. No hematuria or diarrhea other than his normal bowel movements. Patient states he had a similar episode from prior Houser catheterization. In the emergency room he was found to have a temperature of 103, normal WBC, BUN 24 creatinine 2.3 with a glucose of 299, and troponin of 1.11, trace hematuria and a normal chest x-ray, with no acute EKG changes. PMhx: Coronary artery disease, hypertension, polycystic kidney disease status post renal transplant, insulin-dependent diabetes, dyslipidemia PSXhx: Cardiac cath with stent to LAD, bilateral nephrectomy, renal transplant 2001, incisional hernia repair, inguinal hernia repair, SOChx: Denies tobacco, drinks alcohol rarely, FAMhx: Mother of CHF Inpatient Certification Inpatient Certification: I certify that the inpatient services were ordered in accordance with Medicare regulations governing the order. This includes certification that hospital inpatient services are reasonable and necessary and in the case of services not specified as inpatient-only under 42 CFR 419.22(n), that they are appropriately provided as inpatient services in accordance to with the 2-midnight benchmark under 43 CFR 412.3(e) Estimated Total Length of Stay (Days): 2 Plans for Post Hospital Care: Not yet determined Review of Systems Review of Systems: all other systems reviewed are negative [facility] Medical History Medical History Hx of myocardial infarction (Acute) Surgical History Surgical History H/O angioplasty (Acute) Hx of kidney transplant (Acute) Stented coronary artery (Acute) Social History Social History Substance History: No History of Abuse Second Hand Smoke Exposure: No Smoking Status: Never smoker How Often Do You Have a Drink Containing Alcohol: Never Recent Travel in [facility] within the Last 8 Weeks: Yes Recent Out of Country Travel within the Last 8 Weeks: No Immunization History Tetanus Immunization: Unsure Medications and Allergies Allergies Allergy/AdvReac Type Severity Reaction Status Date / Time cefaclor Allergy Unknown Rash Verified 04/29/18 00:38 iodine Allergy Unknown Flushing Verified 04/29/18 00:38 Home Medications Medication Instructions Recorded Confirmed Type aspirin 81 mg PO DAILY 04/29/18 04/29/18 History atorvastatin 80 mg PO QPM 04/29/18 04/29/18 History clopidogrel [Plavix] 75 mg PO DAILY 04/29/18 04/29/18 History glimepiride 1 mg PO QID 04/29/18 04/29/18 History insulin degludec [Tresiba 10 unit SUBCUT DAILY 04/29/18 04/29/18 History FlexTouch U-100] metoprolol tartrate 50 mg PO DAILY 04/29/18 04/29/18 History multivitamin 1 cap PO QAM 04/29/18 04/29/18 History mycophenolate mofetil [CellCept] 750 mg PO BID 04/29/18 04/29/18 History prednisone 5 mg PO DAILY 04/29/18 04/29/18 History tacrolimus [Prograf] 5 mg PO Q12H 04/29/18 04/29/18 History Active Medications: Active Medications Acetaminophen (Tylenol) 650 mg PO Q4H PRN PRN Reason: Temp > 100.4 Al Hydroxide/Mg Hydroxide (Milk Of Magnsusana Liq) 30 ml PO Q12H PRN PRN Reason: Mild Constipation Aspirin (Ecotrin) 81 mg PO DAILY [facility] Last Admin: 04/29/18 09:11 Dose: 81 mg Atorvastatin Calcium (Lipitor) 80 mg PO QPM [facility] Bisacodyl (Dulcolax Supp) 10 mg RECTAL DAILY PRN PRN Reason: SEVERE CONSITIPATION Clopidogrel Bisulfate (Plavix) 75 mg PO DAILY [facility] Last Admin: 04/29/18 09:12 Dose: 75 mg Dextrose (D50w Vial) 50 ml IV.PUSH UNSCH PRN PRN Reason: PER HYPOGLYCEMIA PROTOCOL Enoxaparin Sodium (Lovenox Inj) 40 mg SQ Q24H [facility] Last Admin: 04/29/18 14:40 Dose: 40 mg Glucagon (Glucagon Inj) 1 mg OTHER PRN PRN PRN Reason: for Hypoglycemia Protocol Sodium Chloride (Ns Inj) 1,000 mls @ 100 mls/hr IV.CONT .Q10H [facility] Last Admin: 04/29/18 14:41 Dose: 100 mls/hr Levofloxacin/Dextrose (Levaquin 750 Mg Premix Inj) 150 mls @ 100 mls/hr IV.SIG Q24H [facility] Vancomycin HCl 2,000 mg/ (Sodium Chloride) 520 mls @ 250 mls/hr IV.SIG ONCE ONE Stop: 04/29/18 19:04 Insulin Aspart (Novolog Insulin Correctional Sugar Inj) 0 unit SQ ACHS AND 3AM YRN; Protocol Lactulose (Lactulose Liq) 30 ml PO DAILY PRN PRN Reason: SEVERE CONSITIPATION Metoprolol Tartrate (Lopressor) 50 mg PO DAILY [facility] Last Admin: 04/29/18 09:11 Dose: 50 mg Morphine Sulfate (Morphine Inj) 2 mg IV.PUSH Q4H PRN PRN Reason: PAIN 6-10 Multivitamins (Theragran) 1 tab PO DAILY [facility] Last Admin: 04/29/18 09:11 Dose: 1 tab Mycophenolate Mofetil (Cellcept) 750 mg PO BID [facility] Last Admin: 04/29/18 09:11 Dose: 750 mg Ondansetron HCl (Zofran Inj) 4 mg IV.PUSH Q6H PRN PRN Reason: NAUSEA OR VOMITING Pharmacy Profile Note (Vancomycin Consult Pharmacy) 1 each OTHER UNSCH PRN PRN Reason: Pharmacy to dose Prednisone (Deltasone) 5 mg PO DAILY [facility] Last Admin: 04/29/18 09:12 Dose: 5 mg Senna/Docusate Sodium (Teresa-Colace) 1 tab PO BID [facility] Sennosides (Senokot) 17.2 mg PO Q12H PRN PRN Reason: Moderate Constipation Sodium Chloride (Ns Flush) 2 ml IV.FLUSH PRN PRN PRN Reason: FLUSH AFTER USING IV ACCESS Sodium Chloride (Ns Flush) 2 ml IV.FLUSH BID [facility] Tacrolimus (Prograf) 5 mg PO Q12H [facility] Last Admin: 04/29/18 09:11 Dose: 5 mg Physical Exam Vital signs: Last Vital Signs Temp 99.9 F H 04/29/18 15:00 Pulse 76 04/29/18 15:00 Resp 18 04/29/18 15:00 BP 118/62 04/29/18 15:00 Pulse Ox 99 04/29/18 15:00 Intake & Output 04/27/18 04/28/18 04/29/18 04/30/18 06:59 06:59 06:59 06:59 Intake Total 2150 / 2150 560 / 560 Output Total 525 / 525 700 / 700 Balance 1625 / 1625 -140 / -140 Weight 102.3 kg GEN well-developed well-nourished 58-year-old white male awake alert oriented to person time and place, pleasant in no acute distress HEENT normocephalic atraumatic, Pupils equal reactive, sclerae anicteric, extraocular motion intact, mucosa is moist. posterior pharynx clear without exudate NECK supple no JVD trachea midline thyroid smooth not enlarged ANT CHEST WALL without mass or tenderness to palpation HEART S1-S2 regular without murmur gallops or clicks LUNGS clear to auscultation without wheeze rales or rhonchi , full symmetric expansion no dullness to percussion BACK exam is no CVA tenderness or mass ABDOMEN soft nondistended positive bowel sounds no guarding rebound rigidity, left kidney transplant right lower abdomen soft benign LYMPH NODES no cervical, axillary or inguinal adenopathy noted EXTREMITIES no clubbing cyanosis or significant edema, peripheral pulses palpable +2, right inguinal cath site mild ecchymosis, no erythema or bruit noted NEUROLOGIC cranial nerves II through XII appear grossly intact, strength is 5 out of 5 symmetrical no clonus or rigidity SKIN warm and dry with decreased turgor, no other rash or sores noted Results Labs CBC & Chem 7: 04/29/18 14:05 04/29/18 14:05 Imaging Impressions Chest X-Ray 04/29/18 01:01 CONCLUSION: The lungs are clear. Caprini VTE Risk Assessment Caprini VTE Risk Assessment: Moderate/High Risk (score >= 2) Caprini Risk Assessment Model: Point Value = 1 Point Value = 2 Point Value = 3 Point Value = 5 Age 41-60 Minor surgery BMI > 25 kg/m2 Swollen legs Varicose veins or History of unexplained or recurrent spontaneous Oral contraceptives or hormone replacement Sepsis (< 1 month) Serious lung disease, including pneumonia (< 1 month) Abnormal pulmonary function Acute myocardial infarction Congestive heart failure (< 1 month) History of inflammatory bowel disease Medical patient at bed rest Age 61-74 Arthroscopic surgery Major open surgery (> 45 min) Laparoscopic surgery (> 45 min) Malignancy Confined to bed (> 72 hours) Immobilizing plaster cast Central venous access Age >= 75 History of VTE Family history of VTE Factor V Leiden Prothrombin [id number] Lupus anticoagulant Anticardiolipin antibodies Elevated serum homocysteine Heparin-induced thrombocytopenia Other congenital or acquired thrombophilia Stroke (< 1 month) Elective arthroplasty Hip, pelvis, or leg fracture Acute spinal cord injury (< 1 month) Prophylaxis Regimen: Total Risk Factor Score Risk Level Prophylaxis Regimen 0-1 Low Early ambulation 2 Moderate Order ONE of the following: *Sequential Compression Device (SCD) *Heparin 5000 units SQ BID 3-4 Higher Order ONE of the following medications: *Heparin 5000 units SQ TID *Enoxaparin/Lovenox 40 mg SQ daily (WT < 150 kg, CrCl > 30 mL/min) *Enoxaparin/Lovenox 30 mg SQ daily (WT < 150 kg, CrCl > 10-29 mL/min) *Enoxaparin/Lovenox 30 mg SQ BID (WT < 150 kg, CrCl > 30 mL/min) AND/OR *Sequential Compression Device (SCD) 5 or more Highest Order ONE of the following medications: *Heparin 5000 units SQ TID (Preferred with Epidurals) *Enoxaparin/Lovenox 40 mg SQ daily (WT < 150 kg, CrCl > 30 mL/min) *Enoxaparin/Lovenox 30 mg SQ daily (WT < 150 kg, CrCl > 10-29 mL/min) *Enoxaparin/Lovenox 30 mg SQ BID (WT < 150 kg, CrCl > 30 mL/min) AND *Sequential Compression Device (SCD) Assessment and Plan Plan FEBRILE ILLNESS in immunocompromised renal transplant patient SIRS - consult ID , panculture and empiric levoquin/vanco - recent NSTEMI s/p cath w stent to LAD troponins trending down, no chest pain or new ischemia, metorpolol, plavix, asa- cardiology fu DM insulin dependent - cont home meds as tolerated DALILA on ckd cont fluids, consult nephrology, RENAL transplant for PCK - continue home meds , nephrology consult DYSLIPIDEMIA - statin ANEMIA acute drop -pt states hgb was 14 - monitor hh, check guiac THROMBOCYTOPENIA - mild will monitor dvt prophylaxis - lovenox, but monitor hh and plts closely dispo - home when stable.
--- NOTE | 2018-04-29 15:51 | ECG ---
Date Performed: 04/29/2018 Time Performed: 01:19:02 PTAGE: 58 years EKG: SINUS TACHYCARDIA LATERAL MYOCARDIAL INFARCTION Anterior ST depression present, consider is chemia. ABNORMAL ECG NO PREVIOUS TRACING DOCTOR: Justin Kim Interpretating Date/Time 04/29/2018 15:51:01
--- NOTE | 2018-04-29 16:01 | P.CONCA ---
History of Present Illness Service: Cardiology Consult date: 04/29/18 Reason for Consult: Elevated cardiac biomarkers Primary Care Provider: No Primary Care Physician Chief Complaint: fever History of Present Illness: This is a 58-year-old male who does not have an established attending physician locally. Patient has a history of coronary disease and had recently underwent percutaneous coronary intervention to the left anterior descending coronary artery in [place] after non-ST elevation myocardial infarction. About 3 days after that procedure patient did develop some low-grade fevers. Patient now comes into the emergency department with fever and chills. Patient has history of renal transplant after bilateral nephrectomy secondary to polycystic ovarian kidney disease. Patient was noted to have mildly positive troponin. Patient's creatinine is also elevated 2.3 mg/dL. Patient denies any chest pain symptoms. Review of Systems All other systems reviewed negative except as stated in [facility]PI [facility] - History History Provided By: Patient (recent myocardial infarction with angioplasty and stent placementMI, polycystic kidney, diabetes) - Medical History Medical History: Medical History (Last Updated 04/29/18 @ 00:48 by Ashley New RN) Hx of myocardial infarction - Surgical History Surgical History: Surgical History (Last Updated 04/29/18 @ 00:48 by Ashley New RN) H/O angioplasty Hx of kidney transplant Stented coronary artery - Tobacco History Second Hand Smoke Exposure: No Tobacco Use In Past 30 Days: No Smoking Status: Never smoker - Alcohol History How Often Do You Have a Drink Containing Alcohol: Never - Substance Use History Substance History: No History of Abuse - Travel History Recent Travel in the [place] Within the Last 8 Weeks: Yes Recent Travel Out of the Country Within the Last 8 Weeks: No - Immunization History Tetanus Immunization: Unsure Medications and Allergies Active Medications: Active Medications Acetaminophen (Tylenol) 650 mg PO Q4H PRN PRN Reason: Temp > 100.4 Al Hydroxide/Mg Hydroxide (Milk Of Magnesia Liq) 30 ml PO Q12H PRN PRN Reason: Mild Constipation Aspirin (Ecotrin) 81 mg PO DAILY [facility] Last Admin: 04/29/18 09:11 Dose: 81 mg Atorvastatin Calcium (Lipitor) 80 mg PO QPM [facility] Bisacodyl (Dulcolax Supp) 10 mg RECTAL DAILY PRN PRN Reason: SEVERE CONSITIPATION Clopidogrel Bisulfate (Plavix) 75 mg PO DAILY [facility] Last Admin: 04/29/18 09:12 Dose: 75 mg Dextrose (D50w Vial) 50 ml IV.PUSH UNSCH PRN PRN Reason: PER HYPOGLYCEMIA PROTOCOL Enoxaparin Sodium (Lovenox Inj) 40 mg SQ Q24H [facility] Last Admin: 04/29/18 14:40 Dose: 40 mg Glucagon (Glucagon Inj) 1 mg OTHER PRN PRN PRN Reason: for Hypoglycemia Protocol Sodium Chloride (Ns Inj) 1,000 mls @ 100 mls/hr IV.CONT .Q10H [facility] Last Admin: 04/29/18 14:41 Dose: 100 mls/hr Levofloxacin/Dextrose (Levaquin 750 Mg Premix Inj) 150 mls @ 100 mls/hr IV.SIG Q24H [facility] Vancomycin HCl 2,000 mg/ (Sodium Chloride) 520 mls @ 250 mls/hr IV.SIG ONCE ONE Stop: 04/29/18 19:04 Insulin Aspart (Novolog Insulin Correctional Sugar Inj) 0 unit SQ ACHS AND 3AM YRN; Protocol Lactulose (Lactulose Liq) 30 ml PO DAILY PRN PRN Reason: SEVERE CONSITIPATION Metoprolol Tartrate (Lopressor) 50 mg PO DAILY [facility] Last Admin: 04/29/18 09:11 Dose: 50 mg Morphine Sulfate (Morphine Inj) 2 mg IV.PUSH Q4H PRN PRN Reason: PAIN 6-10 Multivitamins (Theragran) 1 tab PO DAILY [facility] Last Admin: 04/29/18 09:11 Dose: 1 tab Mycophenolate Mofetil (Cellcept) 750 mg PO BID [facility] Last Admin: 04/29/18 09:11 Dose: 750 mg Non-Formulary Medication (Insulin Degludec [Tresiba Flextouch U-100]) 10 unit SQ DAILY [facility] Ondansetron HCl (Zofran Inj) 4 mg IV.PUSH Q6H PRN PRN Reason: NAUSEA OR VOMITING Pharmacy Profile Note (Vancomycin Consult Pharmacy) 1 each OTHER UNSCH PRN PRN Reason: Pharmacy to dose Prednisone (Deltasone) 5 mg PO DAILY [facility] Last Admin: 04/29/18 09:12 Dose: 5 mg Senna/Docusate Sodium (Teresa-Colace) 1 tab PO BID [facility] Sennosides (Senokot) 17.2 mg PO Q12H PRN PRN Reason: Moderate Constipation Sodium Chloride (Ns Flush) 2 ml IV.FLUSH PRN PRN PRN Reason: FLUSH AFTER USING IV ACCESS Sodium Chloride (Ns Flush) 2 ml IV.FLUSH BID YRN Tacrolimus (Prograf) 5 mg PO Q12H YRN Last Admin: 04/29/18 09:11 Dose: 5 mg Allergies Allergy/AdvReac Type Severity Reaction Status Date / Time cefaclor Allergy Unknown Rash Verified 04/29/18 00:38 iodine Allergy Unknown Flushing Verified 04/29/18 00:38 Home Medications Medication Instructions Recorded Confirmed Type aspirin 81 mg PO DAILY 04/29/18 04/29/18 History atorvastatin 80 mg PO QPM 04/29/18 04/29/18 History clopidogrel [Plavix] 75 mg PO DAILY 04/29/18 04/29/18 History glimepiride 1 mg PO QID 04/29/18 04/29/18 History insulin degludec [Tresiba 10 unit SUBCUT DAILY 04/29/18 04/29/18 History FlexTouch U-100] metoprolol tartrate 50 mg PO DAILY 04/29/18 04/29/18 History multivitamin 1 cap PO QAM 04/29/18 04/29/18 History mycophenolate mofetil [CellCept] 750 mg PO BID 04/29/18 04/29/18 History prednisone 5 mg PO DAILY 04/29/18 04/29/18 History tacrolimus [Prograf] 5 mg PO Q12H 04/29/18 04/29/18 History Exam Vital signs: Vital Signs 04/29/18 00:39 04/29/18 01:01 04/29/18 02:35 Temperature 101.4 F H 103.0 F H Pulse Rate 92 H 98 H 93 H Respiratory Rate 20 18 Blood Pressure 153/88 H 100/62 Pulse Oximetry 95 99 100 04/29/18 04:08 04/29/18 04:33 04/29/18 04:55 Temperature 99.7 F H Pulse Rate 97 H 96 H Respiratory Rate 18 Blood Pressure 159/84 H Pulse Oximetry 98 04/29/18 06:20 04/29/18 07:09 04/29/18 08:27 Temperature 103.0 F H 103.2 F H 102.8 F H Pulse Rate 106 H 102 H Respiratory Rate 18 18 Blood Pressure 136/64 149/76 H Pulse Oximetry 100 04/29/18 09:18 04/29/18 09:43 04/29/18 12:04 Temperature 100.5 F H 101.6 F H Pulse Rate 95 H 80 Respiratory Rate 16 16 Blood Pressure 131/73 139/61 Pulse Oximetry 100 97 04/29/18 14:00 04/29/18 15:00 04/29/18 15:37 Temperature 100.0 F H 98.7 F 97.8 F Pulse Rate 67 76 Respiratory Rate 18 18 Blood Pressure 97/56 L 107/61 Pulse Oximetry 100 99 Intake & Output 04/28/18 04/29/18 04/29/18 18:59 06:59 18:59 Intake Total 2150 / 2150 560 / 560 Output Total 525 / 525 700 / 700 Balance 1625 / 1625 -140 / -140 Weight 102.3 kg Intake: IV 2150 / 2150 200 / 200 NS Inj 1,000 ML @ 100 mls/hr IV 200 / 200 .CONT .Q10H YRN Rx#:[id number] Levaquin 750 mg Premix Inj 150 150 / 150 ML @ 100 mls/hr IV.SIG ONCE ONE Rx#:[id number] NS Inj 1,000 ML @ 2000 mls/hr 2000 / 2000 IV.SIG Q30M YRN Rx#:[id number] Oral 360 / 360 Output: Urine 525 / 525 700 / 700 Other: # Voids 1 - Constitutional mild distress - Routine HEENT Exam Head: Present: normocephalic Eye: Present: EOMI, PERRL ENT: Present: mucous membranes moist - Routine Neck Exam Absent: JVD - Routine Respiratory Exam Present: CTA bilaterally - Routine Cardiovascular Exam Present: RRR. Absent: murmur - Routine Abdominal Exam Present: soft, normoactive bowel sounds - Routine Extremities Exam Present: pulses intact. Absent: edema - Routine Neurological Exam Present: oriented X3, CN II-XII intact. Absent: sensory deficit, motor deficit Results 04/29/18 14:05 04/29/18 14:05 Cardiac Enzymes 04/29/18 04/29/18 04/29/18 Range/Units 02:10 08:52 14:05 AST 21 21 (15-37) U/L Troponin I 1.11 H* 1.17 H* 1.10 H* (0.02-0.05) ng/mL Coagulation 04/29/18 Range/Units 02:10 PT 11.1 (9.8-11.6) sec APTT 30.8 (23.4-31.7) sec CBC 04/29/18 04/29/18 Range/Units 01:14 14:05 WBC 5.5 6.4 (4.0-11.0) th/mm3 RBC 4.63 3.39 L (4.50-5.90) mil/mm3 Hgb 13.0 10.3 L D (13.0-17.0) gm/dL Hct 39.6 30.3 L (39.0-51.0) % Plt Count 207 130 L D (150-450) th/mm3 Neut # (Auto) 4.9 5.4 (1.8-7.7) th/mm3 Lymph # (Auto) 0.2 L 0.4 L (1.0-4.8) th/mm3 Whitley # (Auto) 0.3 0.6 (0.0-0.9) th/mm3 Eos # (Auto) 0.0 0.0 (0.0-0.4) th/mm3 Baso # (Auto) 0.1 0.0 (0.0-0.2) th/mm3 Comprehensive Metabolic Panel 04/29/18 04/29/18 Range/Units 02:10 14:05 Sodium 131 L 134 L (136-145) meq/L Potassium 4.2 4.4 (3.5-5.1) meq/L Chloride 99 104 (98-107) meq/L Carbon Dioxide 21.6 20.2 L (21.0-32.0) meq/L BUN 24 H 22 H (7-18) mg/dL Creatinine 2.30 H 2.28 H (0.60-1.30) mg/dL Calcium 7.7 L 7.5 L (8.5-10.1) mg/dL AST 21 21 (15-37) U/L ALT 34 31 (12-78) U/L Alkaline Phosphatase 102 92 (45-117) U/L Total Protein 6.3 L 5.7 L D (6.4-8.2) g/dL Albumin 2.9 L 2.4 L (3.4-5.0) g/dL Intake and Output 12/04/29/18 04/29/18 06:59 14:59 22:59 Intake Total 2150 / 2150 560 / 560 Output Total 525 / 525 700 / 700 Balance 1625 / 1625 -140 / -140 Intake: IV 2150 / 2150 200 / 200 NS Inj 1,000 ML @ 100 mls/hr IV 200 / 200 .CONT .Q10H YRN Rx#:[id number] Levaquin 750 mg Premix Inj 150 150 / 150 ML @ 100 mls/hr IV.SIG ONCE ONE Rx#:[id number] NS Inj 1,000 ML @ 2000 mls/hr 1999 / 1999 IV.SIG Q30M YRN Rx#:[id number] Oral 360 / 360 Output: Urine 525 / 525 700 / 700 Other: # Voids 1 Weight 102.3 kg - Imaging and Cardiology Imaging: Impressions Chest X-Ray 04/29/18 01:01 CONCLUSION: The lungs are clear. Assessment and Plan - Plan Elevated troponin Patient has history of coronary artery disease with prior percutaneous coronary intervention to the left anterior descending coronary artery. At that time patient had symptoms of substernal chest pain and electrocardiographic changes consistent with non-ST elevation myocardial infarction. This time patient presents now with fever and chills and dehydration associated with diarrhea. I suspect the elevated troponin is secondary to a demand mediated leak in conjunction with decreased renal clearance. I would not proceed with an invasive strategy and contrast dye administration for the risk of permanent hemodialysis. Patient may likely be able to be treated conservatively. Troponin trends upwards or patient has recurrent symptoms or left ventricular systolic function is severely reduced, may consider Lexiscan. Will obtain 2D echocardiogram. Okay to trend troponin. Call with any further questions or if troponin is significantly elevated or if left ventricular function is decreased.
[2018-04-29] MEDS ORDERED: Vancomycin Inj 2,000 MG in Sodium Chlor 0.9% Inj 500 ML IV.SIG ONE (17:00)
--- NOTE | 2018-04-29 19:24 | MB ---
cc: Lebron Mahmood MD DATE: 04/29/2018 REQUESTING PHYSICIAN: Piedad Arenas DO REASON FOR CONSULTATION: Fevers, renal transplant patient. HISTORY OF PRESENT ILLNESS: This is a 58-year-old white male who has a history of renal transplantation. The patient presented with a high fever. He developed a fever along with cough and because the temperature was extremely high, he presented to the emergency department for evaluation. The patient was recently evaluated in [place] where he had a myocardial infarction on 04/17/2018. He underwent placement of a coronary artery stent. He had traveled to [place] on business and spent time in [place] prior to going to [place] where he had the myocardial infarction. After he had the procedure, he reported that he had difficulty urinating and a urine catheter had to be placed. After it was removed, he stated that he had some burning. Approximately 6 days ago, he went to [facility] because he had a low-grade fever. Blood tests were performed and he was discharged. It was felt that the fever was probably due to a viral infection. They told him that they would call him with the results of the cultures if any came back positive. The patient notes that he developed a cough which is nonproductive. He has had no sputum production, no shortness of breath and no chest pain of pleuritic nature. He also denies nausea, vomiting, abdominal pain, dysuria or urinary frequency. He is on immunosuppression for the renal transplant. He does not recall any exposure to persons who have been sick. He lives with his and they have 2 dogs. Influenza test is negative. Blood cultures are pending. Urinalysis showed elevated glucose, but no significant white cell elevation. Chest x-ray shows no acute infiltrate. The patient continues to have a dry cough and was coughing during my evaluation. His temperature has gone down from 103 high temperature to 97.8 this evening. The 103 degree temperature was earlier today. The patient denies headache. He stated that he had some photophobia while he was being transported by ambulance from the nearby facility where he was evaluated initially in the emergency department at [facility]. He stated that it occurred for a brief period of time where he just saw white light flashes. He denies headache. He denies muscle or joint aches or pains. PAST MEDICAL HISTORY: Renal transplantation in 2001, myocardial infarction, history of coronary stent in 04/2018. ALLERGIES: CEFACLOR AND IODINE. MEDICATIONS: 1. Ecotrin. 2. Lipitor. 3. Plavix. 4. Lovenox. 5. Levaquin. 6. Lopressor. 7. CellCept. 8. Theragran. 9. Vancomycin. 10. Deltasone. 11. Prograf. SOCIAL HISTORY: The patient is . Never smoked tobacco. Never used alcohol. No drug use. FAMILY HISTORY: Noncontributory. REVIEW OF SYSTEMS: CONSTITUTIONAL: Significant for fever. Denies chills. HEAD, EARS, EYES, NOSE AND THROAT. No visual blurring. No eye tearing. No diplopia. The patient reported an episode of photophobia. No nasal drainage or bleeding. No difficulty swallowing or soreness of the throat. NECK: No swelling or adenopathy. CARDIOVASCULAR: Denies palpitations or chest pain. RESPIRATORY: Significant for cough. Denies chest pain or shortness of breath. GASTROINTESTINAL: Denies nausea, vomiting, diarrhea or abdominal pain. GENITOURINARY: Denies urgency, frequency or dysuria. HEMATOPOIETIC: Denies easy bruising or bleeding. ENDOCRINE: Denies polyuria or polydipsia. MUSCULOSKELETAL: Denies muscle or joint aches or pains or muscle swelling. INTEGUMENTARY: Denies skin rash or itching. NEUROLOGIC: Denies problems with coordination or unsteady gait. PSYCHIATRIC: Denies mood swings or mood changes. PHYSICAL EXAMINATION: GENERAL: This is a well-developed male who is in no acute distress. He is awake, alert and oriented. VITAL SIGNS: He is on oxygen via nasal cannula and saturations range between 89% and higher, temperature 97.8, BP 107/61, respirations 18, heart rate 76. HEENT: Head is atraumatic. Extraocular movements grossly intact. Pupils reactive to light. No icterus. No conjunctival erythema. Oropharynx with moist mucosa without lesions. NECK: Supple without adenopathy or swelling. LUNGS: Decreased breath sounds throughout. HEART: Regular S1 and S2. No murmurs heard. ABDOMEN: Bowel sounds present. Soft. No tenderness appreciated. No masses palpable. RECTAL: Not performed. EXTREMITIES: No clubbing, cyanosis or edema. SKIN: No rash. The skin is warm and moist. NEUROLOGIC: No gross focal finding. PSYCHIATRIC: The patient is calm and cooperative. LABORATORY DATA: WBC 6.4, platelet count 130, hemoglobin 10.3, neutrophils 85%, monocytes 8%, lymphocytes 5%. Creatinine 2.28, BUN 22, estimated GFR 30. Liver function tests normal. BK virus DNA PCR pending. Blood culture pending. IMPRESSION: 1. Fever in patient with renal transplant, on immunosuppression. 2. Cough. Possibly secondary to pneumonia. Possible viral upper respiratory infection versus viral lower respiratory infection. The patient is coughing, but not producing any sputum. He has no dysuria currently and the urinalysis is unremarkable. He also has no diarrhea. It is possible that the fever is due to a pulmonary system infection and possibly viral. However, it is necessary to monitor closely for other possible infections in this patient with renal transplant status, on immunosuppression. RECOMMENDATIONS: 1. Continue vancomycin. 2. Continue Levaquin. 3. Monitor blood cultures. 4. Obtain sputum culture if he starts to produce sputum. 5. Obtain CMV and EBV serology. 6. Monitor for other signs of infection. The patient states that he is starting to feel better already since he has been in the hospital. It appears that he could be benefiting from current antibiotic treatment. Thank you for this consultation. I will monitor the patient's progress along with you and will make further recommendations upon followup if necessary. MD ADAM Hendricks/kevin , 04:48 PM , 05:08 PM DANIEL
[2018-04-29] MEDS: Senna/Docusate Sodium 8.6/50 MG Tablet PO SCH (20:23)
--- NOTE | 2018-04-29 22:41 | MB ---
cc: Fadia Bansal MD DATE: 04/29/2018 REASON FOR CONSULTATION: Post-renal transplant and chronic kidney disease. HISTORY OF PRESENT ILLNESS: This is a 58-year-old male with a past medical history of renal transplant, which was done in 2001, who was admitted with a history of fever. I was called to see the patient for the management of dialysis. The patient has a history of polycystic kidney disease with end-stage renal disease and had a renal transplant done in 2001 in [place]. He also has ischemic heart disease, hypertension, diabetes mellitus and hyperlipidemia. The patient mainly was admitted because of the fever. His temperature was 103 in the emergency department. He has been traveling to [place] and went to the emergency department and was found to have a non-ST elevation MA and has a cardiac catheterization. . The patient started having low-grade fever and was seen in the emergency department and was discharged . His symptoms continued to progress and he had some dysuria. No abdominal pain, no nausea or vomiting, and his fever continued to get worse and eventually, he came to the emergency department. He has been feeling cold. There is no cough, no nausea or vomiting. PAST MEDICAL HISTORY: Hypertension, diabetes mellitus ,hyperlipidemia, ischemic heart disease, history of end-stage renal disease and now, chronic kidney disease. PAST SURGICAL HISTORY: History of renal transplant done in 2001, post-cardiac catheterization and stenting, bilateral nephrectomy, incisional hernia repair. REVIEW OF SYSTEMS: The patient has fever, generalized weakness, feeling tired, but no chest pain. No cough. No shortness of breath. No palpitation. No nausea or vomiting. He has some dysuria. SOCIAL HISTORY: There is no history of smoking or alcoholism. FAMILY HISTORY: Noncontributory. ALLERGIES: HE IS ALLERGIC TO CEFACLOR AND IODINE. MEDICATIONS: Currently, he is on the following medications: 1. Ecotrin 81 mg once a day. 2. Milk of magnesia as needed. 3. Lipitor 80 mg at bedtime. 4. Dulcolax 10 mg as needed. 5. Plavix 75 mg once a day. 6. Lovenox 40 mg subcutaneous every 24 hours. 7. NovoLog insulin. 8. Lactulose 30 mL p.r.n. 9. Levaquin 750 mg every 24 hours. 10. Lopressor 50 mg daily. 11. Morphine as needed. 12. Multivitamin 1 tablet daily. 13. CellCept 750 mg b.i.d. 14. Zofran 4 mg IV every 6 hours. 15. Prednisone 5 mg once a day. 16. Teresa-Colace 1 tablet b.i.d. 17. Senokot 17.2 mg every 12 hours. 18. Vancomycin, dosing as per pharmacy. 19. Prograf 5 mg every 12 hours. PHYSICAL EXAMINATION: GENERAL: The patient is awake, alert. He is not in acute distress. VITAL SIGNS: His last blood pressure is 107/61, temperature is 97.8 with T-max of 103. HEENT: Pupils are mid constricted. Nonicteric sclerae. Conjunctivae are pale. NECK: Supple. JVD is not elevated. LUNGS: The patient has bilateral good air entry with occasional wheezing. CARDIOVASCULAR: S1, S2. Regular rhythm. ABDOMEN: Distended, soft. There is no tenderness. Bowel sounds positive. EXTREMITIES: There is no pedal edema. LABORATORY DATA: WBC 26.4, hemoglobin 10.3, platelet count 130, neutrophils 85.5%. INR is 1.1. Sodium is 134, potassium 4.4, chloride 104, bicarbonate 20.2, BUN 22, creatinine is 2.8, glucose 264, lactic acid 1.1, calcium is 7.5. AST 21, ALT is 31, is 1.1. Total protein is 5.7, albumin is 2.4. Urinalysis showing RBC of 4-15 and WBCs 0-5. All the cultures are pending. IMAGING STUDIES: The patient had a chest x-ray done, which shows no mass or infiltrate. ASSESSMENT AND PLAN: 1. Fever, rule out sepsis or pneumonia. 2. Post renal transplant with chronic kidney disease. 3. Diabetes mellitus. 4. Hypertension. 5. Hyperlipidemia. 6. Anemia. 7. Thrombocytopenia. The patient had a renal transplant in 2001 and, according to him, his baseline creatinine is around 1.8-1.9. He came and was admitted with a higher creatinine of 2.3 and now it is 2.2. The patient is nonoliguric. He is on Prograf and CellCept. Continue the antibiotic, follow the vancomycin level, and continue the CellCept and Prograf and follow the Prograf level. Thank you for the consultation. Avoid any nephrotoxins including contrast or nonsteroidal anti-inflammatory drugs. I will follow the patient while he is in the hospital. MD ANNA CurranJ/rw/do , 09:04 PM , 09:17 PM
[2018-04-30] MEDS: Insulin NovoLOG Aspart Correctional Sugar Inj SQ SCH ×5 (03:56→22:01)
[2018-04-30] MEDS: Acetaminophen 325 MG Tablet PO PRN (04:07)
[2018-04-30 05:59] LABS: Baso % (Auto) 0.3 % (0.0-2.0); Eos % (Auto) 0.1 % (0.0-4.0); Hematocrit 29.7 % (39.0-51.0); Hemoglobin 10.2 gm/dL (13.0-17.0); Lymph # (Auto) 0.4 th/mm3 (1.0-4.8); Lymph % (Auto) 5.9 % (9.0-44.0); Mean Corpuscular HGB Conc 34.4 % (32.0-36.0); Mean Corpuscular Hemoglobin 29.9 pg (27.0-34.0); Mean Platelet Volume 8.7 fL (7.0-11.0); Mono # (Auto) 0.4 th/mm3 (0.0-0.9); Mono % (Auto) 5.8 % (0.0-8.0); Neut # (Auto) 5.4 th/mm3 (1.8-7.7); Neut % (Auto) 87.9 % (16.0-70.0); Platelet Count 128 th/mm3 (150-450); Red Blood Count 3.42 mil/mm3 (4.50-5.90); Red Cell Distribution Width 14.1 % (11.6-17.2); White Blood Count 6.2 th/mm3 (4.0-11.0)
[2018-04-30 06:32] LABS: Alanine Aminotransferase 29 U/L (12-78); Albumin 2.4 g/dL (3.4-5.0); Alkaline Phosphatase 84 U/L (45-117); Anion Gap 10 meq/L (5-15); Aspartate Aminotransferase 18 U/L (15-37); Blood Urea Nitrogen 20 mg/dL (7-18); Calcium 7.6 mg/dL (8.5-10.1); Carbon Dioxide 18.9 meq/L (21.0-32.0); Chloride 106 meq/L (98-107); Glomerular Filtration Rate 33 mL/min (>89); Glucose,Random 168 mg/dL (74-106); Potassium 3.9 meq/L (3.5-5.1); Sodium 135 meq/L (136-145); Total Protein 5.7 g/dL (6.4-8.2)
[2018-04-30] MEDS: predniSONE 5 MG Tablet PO SCH (08:27)
[2018-04-30] MEDS: Mycophenolate Mofetil 250 MG Capsule PO SCH ×2 (08:27→21:14)
[2018-04-30] MEDS: Metoprolol Tartrate 50 MG Tablet PO SCH (08:27)
[2018-04-30] MEDS: Senna/Docusate Sodium 8.6/50 MG Tablet PO SCH ×2 (08:28→21:16)
--- NOTE | 2018-04-30 08:46 | P.PNCA ---
Subjective Interval history: Patient seen and examined. Still with fevers, diarrhea. No chest pain or dyspnea. tele - no events Medications and Allergies Active Medications: Active Medications Acetaminophen (Tylenol) 650 mg PO Q4H PRN PRN Reason: Temp > 100.4 Last Admin: 04/30/18 04:07 Dose: 650 mg Al Hydroxide/Mg Hydroxide (Milk Of Magnesia Liq) 30 ml PO Q12H PRN PRN Reason: Mild Constipation Aspirin (Ecotrin) 81 mg PO DAILY REPLACED BY [facility] Last Admin: 04/30/18 08:28 Dose: 81 mg Atorvastatin Calcium (Lipitor) 80 mg PO HS REPLACED BY [facility] Bisacodyl (Dulcolax Supp) 10 mg RECTAL DAILY PRN PRN Reason: SEVERE CONSITIPATION Clopidogrel Bisulfate (Plavix) 75 mg PO DAILY REPLACED BY [facility] Last Admin: 04/30/18 08:28 Dose: 75 mg Dextrose (D50w Vial) 50 ml IV.PUSH UNSCH PRN PRN Reason: PER HYPOGLYCEMIA PROTOCOL Enoxaparin Sodium (Lovenox Inj) 40 mg SQ Q24H REPLACED BY [facility] Last Admin: 04/29/18 14:40 Dose: 40 mg Glucagon (Glucagon Inj) 1 mg OTHER PRN PRN PRN Reason: for Hypoglycemia Protocol Sodium Chloride (Ns Inj) 1,000 mls @ 100 mls/hr IV.CONT .Q10H REPLACED BY [facility] Last Admin: 04/29/18 23:34 Dose: 100 mls/hr Levofloxacin/Dextrose (Levaquin 750 Mg Premix Inj) 150 mls @ 100 mls/hr IV.SIG Q24H REPLACED BY [facility] Last Admin: 04/30/18 03:54 Dose: 100 mls/hr Insulin Aspart (Novolog Insulin Correctional Sugar Inj) 0 unit SQ ACHS AND 3AM YRN; Protocol Last Admin: 04/30/18 08:29 Dose: 2 unit Lactulose (Lactulose Liq) 30 ml PO DAILY PRN PRN Reason: SEVERE CONSITIPATION Metoprolol Tartrate (Lopressor) 50 mg PO DAILY REPLACED BY [facility] Last Admin: 04/30/18 08:27 Dose: 50 mg Morphine Sulfate (Morphine Inj) 2 mg IV.PUSH Q4H PRN PRN Reason: PAIN 6-10 Multivitamins (Theragran) 1 tab PO DAILY REPLACED BY [facility] Last Admin: 04/30/18 08:28 Dose: 1 tab Mycophenolate Mofetil (Cellcept) 750 mg PO BID REPLACED BY [facility] Last Admin: 04/30/18 08:27 Dose: 750 mg Ondansetron HCl (Zofran Inj) 4 mg IV.PUSH Q6H PRN PRN Reason: NAUSEA OR VOMITING Pt Own (Insulin Degludec [Tresiba Flextouch U-100] 10 Unit) 0 each SQ DAILY REPLACED BY [facility] Pharmacy Profile Note (Vancomycin Consult Pharmacy) 1 each OTHER UNSCH PRN PRN Reason: Pharmacy to dose Prednisone (Deltasone) 5 mg PO DAILY REPLACED BY [facility] Last Admin: 04/30/18 08:27 Dose: 5 mg Senna/Docusate Sodium (Teresa-Colace) 1 tab PO BID REPLACED BY [facility] Last Admin: 04/30/18 08:28 Dose: 1 tab Sennosides (Senokot) 17.2 mg PO Q12H PRN PRN Reason: Moderate Constipation Sodium Chloride (Ns Flush) 2 ml IV.FLUSH PRN PRN PRN Reason: FLUSH AFTER USING IV ACCESS Sodium Chloride (Ns Flush) 2 ml IV.FLUSH BID REPLACED BY [facility] Last Admin: 04/30/18 08:30 Dose: 2 ml Tacrolimus (Prograf) 5 mg PO Q12H REPLACED BY [facility] Last Admin: 04/29/18 20:23 Dose: 5 mg Allergies Allergy/AdvReac Type Severity Reaction Status Date / Time cefaclor Allergy Unknown Rash Verified 04/29/18 00:38 iodine Allergy Unknown Flushing Verified 04/29/18 00:38 Home Medications Medication Instructions Recorded Confirmed Type aspirin 81 mg PO DAILY 04/29/18 04/29/18 History atorvastatin 80 mg PO QPM 04/29/18 04/29/18 History clopidogrel [Plavix] 75 mg PO DAILY 04/29/18 04/29/18 History glimepiride 1 mg PO QID 04/29/18 04/29/18 History insulin degludec [Tresiba 10 unit SUBCUT DAILY 04/29/18 04/29/18 History FlexTouch U-100] metoprolol tartrate 50 mg PO DAILY 04/29/18 04/29/18 History multivitamin 1 cap PO QAM 04/29/18 04/29/18 History mycophenolate mofetil [CellCept] 750 mg PO BID 04/29/18 04/29/18 History prednisone 5 mg PO DAILY 04/29/18 04/29/18 History tacrolimus [Prograf] 5 mg PO Q12H 04/29/18 04/29/18 History Physical Exam Vital signs: Vital Signs 04/29/18 09:18 04/29/18 09:43 04/29/18 12:04 Temperature 100.5 F H 101.6 F H Pulse Rate 95 H 80 Respiratory Rate 16 16 Blood Pressure 131/73 139/61 Pulse Oximetry 100 97 04/29/18 14:00 04/29/18 15:00 04/29/18 15:37 Temperature 100.0 F H 98.7 F 97.8 F Pulse Rate 67 76 Respiratory Rate 18 18 Blood Pressure 97/56 L 107/61 Pulse Oximetry 100 99 04/29/18 16:00 04/29/18 18:00 04/29/18 20:00 Temperature 102.9 F H Pulse Rate 72 80 94 H Respiratory Rate 28 H Blood Pressure 171/84 H Pulse Oximetry 96 04/29/18 22:00 04/29/18 22:39 04/29/18 23:00 Temperature Pulse Rate 90 81 77 Respiratory Rate 24 23 Blood Pressure 120/66 Pulse Oximetry 97 100 04/30/18 00:00 04/30/18 01:00 04/30/18 01:01 Temperature 99.8 F H Pulse Rate 74 111 H 105 H Respiratory Rate 22 24 32 H Blood Pressure 113/66 181/98 H Pulse Oximetry 100 100 99 04/30/18 02:00 04/30/18 03:00 04/30/18 03:17 Temperature Pulse Rate 96 H 101 H 103 H Respiratory Rate 22 27 H 23 Blood Pressure 167/93 H 185/86 H 163/80 H Pulse Oximetry 100 97 96 04/30/18 04:00 04/30/18 05:00 04/30/18 06:00 Temperature 103.2 F H Pulse Rate 98 H 100 H 82 Respiratory Rate 16 16 20 Blood Pressure 142/70 H 123/73 107/61 Pulse Oximetry 99 100 100 Intake & Output 04/29/18 04/30/18 04/30/18 18:59 06:59 18:59 Intake Total 1338 / 1338 1720 / 1720 Output Total 900 / 900 2000 / 2000 Balance 438 / 438 -280 / -280 Weight 100.5 kg Intake: IV 200 / 200 1000 / 1000 NS Inj 1,000 ML @ 100 mls/hr IV 200 / 200 1000 / 1000 .CONT .Q10H YRN Rx#:[id number] Oral 1138 / 1138 720 / 720 Output: Urine 900 / 900 1999 / 1999 Other: # Voids 3 # Bowel Movements 0 0 Narrative: GENERAL: AO x 3 comfortable appearing SKIN: Warm and dry. HEAD: Atraumatic. Normocephalic. EYES: Pupils equal and round. No scleral icterus. No injection or drainage. NECK: Trachea midline. No JVD. CARDIOVASCULAR: Regular rate and rhythm. RESPIRATORY: No accessory muscle use. Clear to auscultation. Breath sounds equal bilaterally. GASTROINTESTINAL: Abdomen soft, non-tender, nondistended. MUSCULOSKELETAL: Extremities without clubbing, cyanosis, or edema. No obvious deformities. NEUROLOGICAL: Awake and alert. No obvious cranial nerve deficits. Motor grossly within normal limits. Normal speech. PSYCHIATRIC: Appropriate mood and affect; insight and judgment normal. Results 04/30/18 05:03 04/30/18 05:49 Cardiac Enzymes 04/29/18 04/29/18 04/29/18 Range/Units 02:10 08:52 14:05 AST 21 21 (15-37) U/L Troponin I 1.11 H* 1.17 H* 1.10 H* (0.02-0.05) ng/mL 04/29/18 04/30/18 Range/Units 18:13 05:49 AST 18 (15-37) U/L Troponin I 1.00 H* (0.02-0.05) ng/mL Coagulation 04/29/18 Range/Units 02:10 PT 11.1 (9.8-11.6) sec APTT 30.8 (23.4-31.7) sec CBC 04/29/18 04/29/18 04/30/18 Range/Units 01:14 14:05 05:03 WBC 5.5 6.4 6.2 (4.0-11.0) th/mm3 RBC 4.63 3.39 L 3.42 L (4.50-5.90) mil/mm3 Hgb 13.0 10.3 L D 10.2 L (13.0-17.0) gm/dL Hct 39.6 30.3 L 29.7 L (39.0-51.0) % Plt Count 207 130 L D 128 L (150-450) th/mm3 Neut # (Auto) 4.9 5.4 5.4 (1.8-7.7) th/mm3 Lymph # (Auto) 0.2 L 0.4 L 0.4 L (1.0-4.8) th/mm3 [place] # (Auto) 0.3 0.6 0.4 (0.0-0.9) th/mm3 Eos # (Auto) 0.0 0.0 0.0 (0.0-0.4) th/mm3 Baso # (Auto) 0.1 0.0 0.0 (0.0-0.2) th/mm3 Comprehensive Metabolic Panel 04/29/18 04/29/18 04/30/18 Range/Units 02:10 14:05 05:49 Sodium 131 L 134 L 135 L (136-145) meq/L Potassium 4.2 4.4 3.9 (3.5-5.1) meq/L Chloride 99 104 106 (98-107) meq/L Carbon Dioxide 21.6 20.2 L 18.9 L (21.0-32.0) meq/L BUN 24 H 22 H 20 H (7-18) mg/dL Creatinine 2.30 H 2.28 H 2.07 H (0.60-1.30) mg/dL Calcium 7.7 L 7.5 L 7.6 L (8.5-10.1) mg/dL AST 21 21 18 (15-37) U/L ALT 34 31 29 (12-78) U/L Alkaline Phosphatase 102 92 84 (45-117) U/L Total Protein 6.3 L 5.7 L D 5.7 L (6.4-8.2) g/dL Albumin 2.9 L 2.4 L 2.4 L (3.4-5.0) g/dL Intake and Output 04/29/18 04/30/18 04/30/18 22:59 06:59 14:59 Intake Total 778 / 778 1720 / 1720 Output Total 200 / 200 1999 / 1999 Balance 578 / 578 -280 / -280 Intake: IV 1000 / 1000 NS Inj 1,000 ML @ 100 mls/hr IV 1000 / 1000 .CONT .Q10H YRN Rx#:[id number] Oral 778 / 778 720 / 720 Output: Urine 200 / 200 1999 Other: # Voids 3 # Bowel Movements 0 0 Weight 100.5 kg - Imaging and Cardiology Imaging: Impressions Chest X-Ray 04/29/18 01:01 CONCLUSION: The lungs are clear. Assessment and Plan - Plan Elevated troponin, stable Suspect secondary to demand ischemia in setting of febrile illness. ECG with no ischemic changes, troponin is flat, No clinical symptoms of ACS. CAD s/p PCI LAD with prior typical anginal symptoms at that time. Febrile illness with diarrhea CKD stage 3/4 thrombocytopenia Rec: -echocardiogram -continue work up of febrile illness. consider ID/GI consultation will sign off for now. call with questions.
[2018-04-30] MEDS ORDERED: INSULIN DEGLUDEC 10 UNIT SQ SCH (09:00)
[2018-04-30] MEDS: Sod Chloride 0.9% Inj 1,000 ML IV.CONT SCH ×2 (10:56→21:14)
--- NOTE | 2018-04-30 11:32 | P.PNID ---
Subjective Remarks: Patient continues to have fever. Temp was elevated to 103 degrees last evening. Tells me he feels well currently. Denies chills, headache, shortness of breath. Reports that he has loose stools but not completely diarrhea. Blood cultures are pending. White blood cell count remain normal. Patient called a new set of [place] about the blood work that was done 1 week ago He was told that all of the tests and cultures are negative. Patient presented with a high fever along with cough. The patient was recently evaluated in [place] where he had a myocardial infarction on 04/17/2018. He underwent placement of a coronary artery stent. He had traveled to [place] on business and spent time in [place] prior to going to [place] where he had the myocardial infarction. After he had the procedure, he reported that he had difficulty urinating and a urine catheter had to be placed. After it was removed, he stated that he had some burning. Approximately 6 days ago, he went to [facility] because he had a low-grade fever. Blood tests were performed and he was discharged. It was felt that the fever was probably due to a viral infection. They told him that they would call him with the results of the cultures if any came back positive. Past Medical History: PAST MEDICAL HISTORY: Renal transplantation in 2001, myocardial infarction, history of coronary stent in 04/2018. Allergies/Adverse Reactions: Allergies cefaclor Allergy (Unknown, Verified 04/29/18 00:38) Rash iodine Allergy (Unknown, Verified 04/29/18 00:38) Flushing Objective Vital Signs 04/29/18 12:04 04/29/18 14:00 04/29/18 15:00 Temperature 101.6 F H 100.0 F H 98.7 F Pulse Rate 80 67 76 Respiratory Rate 16 18 18 Blood Pressure 139/61 97/56 L 107/61 Pulse Oximetry 97 100 99 04/29/18 15:37 04/29/18 16:00 04/29/18 18:00 Temperature 97.8 F Pulse Rate 72 80 Respiratory Rate Blood Pressure Pulse Oximetry 04/29/18 20:00 04/29/18 22:00 04/29/18 22:39 Temperature 102.9 F H Pulse Rate 94 H 90 81 Respiratory Rate 28 H 24 Blood Pressure 171/84 H Pulse Oximetry 96 97 04/29/18 23:00 04/30/18 00:00 04/30/18 01:00 Temperature 99.8 F H Pulse Rate 77 74 111 H Respiratory Rate 23 22 24 Blood Pressure 120/66 113/66 Pulse Oximetry 100 100 100 04/30/18 01:01 04/30/18 02:00 04/30/18 03:00 Temperature Pulse Rate 105 H 96 H 101 H Respiratory Rate 32 H 22 27 H Blood Pressure 181/98 H 167/93 H 185/86 H Pulse Oximetry 99 100 97 04/30/18 03:17 04/30/18 04:00 04/30/18 05:00 Temperature 103.2 F H Pulse Rate 103 H 98 H 100 H Respiratory Rate 23 16 16 Blood Pressure 163/80 H 142/70 H 123/73 Pulse Oximetry 96 99 100 04/30/18 06:00 Temperature Pulse Rate 82 Respiratory Rate 20 Blood Pressure 107/61 Pulse Oximetry 100 Intake & Output 04/29/18 04/30/18 04/30/18 18:59 06:59 18:59 Intake Total 1338 / 1338 1720 / 1720 1000 / 1000 Output Total 900 / 900 1999 / 1999 Balance 438 / 438 -280 / -280 1000 / 1000 Weight 100.5 kg Intake: IV 200 / 200 1000 / 1000 1000 / 1000 NS Inj 1,000 ML @ 100 mls/hr IV 200 / 200 1000 / 1000 1000 / 1000 .CONT .Q10H YRN Rx#:[id number] Oral 1138 / 1138 720 / 720 Output: Urine 900 / 900 2000 / 1999 Other: # Voids 3 # Bowel Movements 0 0 04/29/18 14:05 Blood - Peripheral Aerobic Blood Culture - Preliminary No growth in 1 day 04/29/18 14:05 Blood - Peripheral Anaerobic Blood Culture - Preliminary No growth in 1 day 04/29/18 14:00 Blood - Peripheral Aerobic Blood Culture - Preliminary No growth in 1 day 04/29/18 14:00 Blood - Peripheral Anaerobic Blood Culture - Preliminary No growth in 1 day 04/29/18 01:14 Blood - Peripheral Aerobic Blood Culture - Preliminary No growth in 1 day 04/29/18 01:14 Blood - Peripheral Anaerobic Blood Culture - Preliminary No growth in 1 day 04/29/18 01:22 Blood - Peripheral Aerobic Blood Culture - Preliminary No growth in 1 day 04/29/18 01:22 Blood - Peripheral Anaerobic Blood Culture - Preliminary No growth in 1 day 04/29/18 01:14 Nasal Wash Influenza Types A,B Antigen - Final Negative for FLU A and B antigen Infection due to influenza A or B cannot be ruled out since the antigen present in the sample may be below the detection limit of the test. Lab - Hematology Results 04/29/18 04/29/18 04/30/18 01:14 14:05 05:03 CBC w Diff Auto diff final WBC 5.5 6.4 6.2 RBC 4.63 3.39 L 3.42 L Hgb 13.0 10.3 L D 10.2 L Hct 39.6 30.3 L 29.7 L MCV 85.6 89.3 D 87.0 MCH 28.1 30.4 29.9 MCHC 32.9 34.1 34.4 RDW 13.5 14.0 14.1 Plt Count 207 130 L D 128 L MPV 9.3 8.6 8.7 Neut % (Auto) 88.2 H 85.5 H 87.9 H Lymph % (Auto) 4.5 L 5.5 L 5.9 L [place] % (Auto) 5.2 8.6 H 5.8 Eos % (Auto) 0.2 0.1 0.1 Baso % (Auto) 1.9 0.3 0.3 Neut # (Auto) 4.9 5.4 5.4 Lymph # (Auto) 0.2 L 0.4 L 0.4 L [place] # (Auto) 0.3 0.6 0.4 Eos # (Auto) 0.0 0.0 0.0 Baso # (Auto) 0.1 0.0 0.0 WBC Differential . . . Differential Comment . Auto diff final Auto diff final Lab - Chemistry Results 04/29/18 04/29/18 04/29/18 02:10 02:10 04:04 Sodium 131 L Potassium 4.2 Chloride 99 Carbon Dioxide 21.6 Anion Gap 10 BUN 24 H Creatinine 2.30 H Estimated GFR 30 L POC Glucose 232 H Random Glucose 299 H Lactic Acid 1.2 Calcium 7.7 L Magnesium 1.8 Total Bilirubin 0.7 AST 21 ALT 34 Alkaline Phosphatase 102 Total Creatine Kinase 62 Troponin I 1.11 H* Total Protein 6.3 L Albumin 2.9 L 04/29/18 04/29/18 04/29/18 08:25 08:52 11:55 Sodium Potassium Chloride Carbon Dioxide Anion Gap BUN Creatinine Estimated GFR POC Glucose 195 H 148 H Random Glucose Lactic Acid Calcium Magnesium Total Bilirubin AST ALT Alkaline Phosphatase Total Creatine Kinase Troponin I 1.17 H* Total Protein Albumin 04/29/18 04/29/18 04/29/18 14:05 14:05 16:56 Sodium 134 L Potassium 4.4 Chloride 104 Carbon Dioxide 20.2 L Anion Gap 10 BUN 22 H Creatinine 2.28 H Estimated GFR 30 L POC Glucose 231 H Random Glucose 271 H Lactic Acid 1.1 Calcium 7.5 L Magnesium Total Bilirubin 0.5 AST 21 ALT 31 Alkaline Phosphatase 92 Total Creatine Kinase 56 Troponin I 1.10 H* Total Protein 5.7 L D Albumin 2.4 L 04/29/18 04/29/18 04/30/18 18:13 20:28 03:56 Sodium Potassium Chloride Carbon Dioxide Anion Gap BUN Creatinine Estimated GFR POC Glucose 264 H 121 H Random Glucose Lactic Acid Calcium Magnesium Total Bilirubin AST ALT Alkaline Phosphatase Total Creatine Kinase Troponin I 1.00 H* Total Protein Albumin 04/30/18 04/30/18 05:49 08:16 Sodium 135 L Potassium 3.9 Chloride 106 Carbon Dioxide 18.9 L Anion Gap 10 BUN 20 H Creatinine 2.07 H Estimated GFR 33 L POC Glucose 166 H Random Glucose 168 H D Lactic Acid Calcium 7.6 L Magnesium Total Bilirubin 0.4 AST 18 ALT 29 Alkaline Phosphatase 84 Total Creatine Kinase Troponin I Total Protein 5.7 L Albumin 2.4 L Imaging: ITS Impressions Chest X-Ray 04/29/18 01:01 CONCLUSION: The lungs are clear. Physical Exam: PHYSICAL EXAMINATION: GENERAL: Patient is awake and alert and in no acute distress. HEENT: Head is atraumatic. Extraocular movements grossly intact. Pupils reactive to light. No icterus. No conjunctival erythema. Oropharynx with moist mucosa without lesions. NECK: Supple without adenopathy or swelling. LUNGS: Decreased breath sounds. No rhonchi heard. HEART: Regular S1 and S2. No murmurs heard. ABDOMEN: Bowel sounds present. Soft. No tenderness appreciated. No masses palpable. EXTREMITIES: No clubbing, cyanosis or edema. SKIN: No rash. The skin is warm and moist. NEUROLOGIC: No gross focal finding. PSYCHIATRIC: The patient is calm and cooperative. IV lines without evidence of infection. Assessment and Plan - Plan IMPRESSION: 1. Fever in patient with renal transplant, on immunosuppression. 2. Cough. Possibly secondary to pneumonia. Possible viral upper respiratory infection versus viral lower respiratory infection. The patient is coughing, but not producing any sputum. He has no dysuria currently and the urinalysis is unremarkable. RECOMMENDATIONS: 1. Continue vancomycin. 2. Continue Levaquin. 3. Add micafungin because of the severe immunosuppression. 4. Repeat chest x-ray 5. Monitor blood cultures. 6. Monitor viral serology. 7. Follow CMV and EBV serology. 8. Monitor for other signs of infection.
[2018-04-30] MEDS: Enoxaparin Inj 40 MG/0.4 ML Syringe SQ SCH (12:16)
[2018-04-30] MEDS ORDERED: Vancomycin Inj 1,500 MG in Sodium Chlor 0.9% Inj 500 ML IV.SIG ONE (14:00)
[2018-04-30 14:14] LABS: Copies Less Than 5000 copies/mL
--- NOTE | 2018-04-30 15:07 | XR ---
EXAM DATE: 04/30/2018 2:43 PM EST AGE/SEX: 58 years / Male INDICATIONS: Pneumonia. Patient states he has a high fever. CLINICAL DATA: This is the patient's subsequent encounter. Patient reports that signs and symptoms h ave been present for 2 days and indicates a pain score of 0/10. MEDICAL/SURGICAL HISTORY: None. None. COMPARISON: HPO, CHEST 1V SINGLE AP, 04/29/2018. . FINDINGS: Portable AP view of the chest demonstrates a normal-sized cardiac silhouette. No effusion, consolidat ion, or pneumothorax is identified. The bones and soft tissues demonstrate no acute finding. EKG line s overlie the patient. CONCLUSION: No acute cardiopulmonary abnormality is identified. Electronically signed by: Jaime Vasques MD Board Certified Radiologist 04/30/2018 3:06 PM EST
--- NOTE | 2018-04-30 16:13 | P.PNIM ---
Subjective Interval history: 58-year-old male who was admitted for fever of unknown origin complicated by his history of renal transplant and use of immunosuppressive agents. He states he feels somewhat better than his admission time but is still having recurrent fevers. This is not the first time he has had fevers, but typically this syndrome last for a couple days and this 1 has lasted for approximately 1 week and is worsening. Physical Exam Vital signs: Last Vital Signs Temp 103.2 F H 04/30/18 04:00 Pulse 72 04/30/18 14:00 Resp 20 04/30/18 06:00 BP 107/61 04/30/18 06:00 Pulse Ox 100 04/30/18 08:00 Intake & Output 04/28/18 04/29/18 04/30/18 05/01/18 06:59 06:59 06:59 06:59 Intake Total 2150 / 2150 3058 / 3058 1000 / 1000 Output Total 525 / 525 2900 / 2900 Balance 1625 / 1625 158 / 158 1000 / 1000 Weight 102.3 kg 100.5 kg Narrative: GENERAL: AO x 3 comfortable appearing SKIN: Warm and dry. HEAD: Atraumatic. Normocephalic. EYES: Pupils equal and round. No scleral icterus. No injection or drainage. NECK: Trachea midline. No JVD. CARDIOVASCULAR: Regular rate and rhythm. RESPIRATORY: No accessory muscle use. Clear to auscultation. Breath sounds equal bilaterally. GASTROINTESTINAL: Abdomen soft, non-tender, nondistended. MUSCULOSKELETAL: Extremities without clubbing, cyanosis, or edema. No obvious deformities. NEUROLOGICAL: Awake and alert. No obvious cranial nerve deficits. Motor grossly within normal limits. Normal speech. PSYCHIATRIC: Appropriate mood and affect; insight and judgment normal. Results Labs CBC & Chem 7: 04/30/18 05:03 04/30/18 05:49 Labs: Microbiology 04/29/18 14:05 Blood - Peripheral Aerobic Blood Culture - Preliminary No growth in 1 day 04/29/18 14:05 Blood - Peripheral Anaerobic Blood Culture - Preliminary No growth in 1 day 04/29/18 14:00 Blood - Peripheral Aerobic Blood Culture - Preliminary No growth in 1 day 04/29/18 14:00 Blood - Peripheral Anaerobic Blood Culture - Preliminary No growth in 1 day 04/29/18 01:14 Blood - Peripheral Aerobic Blood Culture - Preliminary No growth in 1 day 04/29/18 01:14 Blood - Peripheral Anaerobic Blood Culture - Preliminary No growth in 1 day 04/29/18 01:22 Blood - Peripheral Aerobic Blood Culture - Preliminary No growth in 1 day 04/29/18 01:22 Blood - Peripheral Anaerobic Blood Culture - Preliminary No growth in 1 day Imaging Imaging: Impressions Chest X-Ray 04/30/18 11:32 CONCLUSION: No acute cardiopulmonary abnormality is identified. Assessment and Plan Plan Fever of unknown origin Patient denies any GI or SAMPLE COLLECTOR symptoms, only complains of persistent dry cough His empiric coverage includes Levaquin, vancomycin, micafungin Appreciate infectious disease guiding antibiotic selections h/o renal transplant, on immunosuppressive agents Patient is on CellCept and Prograf, continue at current doses No signs of renal rejection Follow daily labs DVT Prophylaxis Lovenox Disposition We will transfer patient out of the ICU when fevers are subsided
--- NOTE | 2018-04-30 16:43 | ECG ---
Date Performed: 04/29/2018 Time Performed: 09:13:19 PTAGE: 58 years EKG: Sinus rhythm INTRAVENTRICULAR CONDUCTION DELAY Consider LATERAL MYOCARDIAL INFARCTION-age indeterminate. ABNORMAL ECG PREVIOUS TRACING : 04/29/2018 01.19 DOCTOR: Juliocesar Brooks Interpretating Date/Time 04/30/2018 16:41:57
--- NOTE | 2018-04-30 18:25 | P.PNNP ---
Subjective Interval history: Patient is alert, has mild cough, no SOB, no chest pain. Physical Exam Vital signs: Vital Signs 04/29/18 20:00 04/29/18 22:00 04/29/18 22:39 Temperature 102.9 F H Pulse Rate 94 H 90 81 Respiratory Rate 28 H 24 Blood Pressure 171/84 H Pulse Oximetry 96 97 04/29/18 23:00 04/30/18 00:00 04/30/18 01:00 Temperature 99.8 F H Pulse Rate 77 74 111 H Respiratory Rate 23 22 24 Blood Pressure 120/66 113/66 Pulse Oximetry 100 100 100 04/30/18 01:01 04/30/18 02:00 04/30/18 03:00 Temperature Pulse Rate 105 H 96 H 101 H Respiratory Rate 32 H 22 27 H Blood Pressure 181/98 H 167/93 H 185/86 H Pulse Oximetry 99 100 97 04/30/18 03:17 04/30/18 04:00 04/30/18 05:00 Temperature 103.2 F H Pulse Rate 103 H 98 H 100 H Respiratory Rate 23 16 16 Blood Pressure 163/80 H 142/70 H 123/73 Pulse Oximetry 96 99 100 04/30/18 06:00 04/30/18 08:00 04/30/18 10:00 Temperature 99.0 F Pulse Rate 82 84 70 Respiratory Rate 20 19 Blood Pressure 107/61 113/65 Pulse Oximetry 100 100 04/30/18 12:00 04/30/18 14:00 04/30/18 16:00 Temperature 98.8 F 98.0 F Pulse Rate 78 72 69 Respiratory Rate 16 22 Blood Pressure 102/61 114/71 Pulse Oximetry 100 100 Intake & Output 04/29/18 04/30/18 04/30/18 18:59 06:59 18:59 Intake Total 1338 / 1338 1720 / 1720 1000 / 1000 Output Total 900 / 900 1999 Balance 438 / 438 -280 / -280 1000 / 1000 Weight 100.5 kg Intake: IV 200 / 200 1000 / 1000 1000 / 1000 NS Inj 1,000 ML @ 100 mls/hr IV 200 / 200 1000 / 1000 1000 / 1000 .CONT .Q10H YRN Rx#:[id number] Oral 1138 / 1138 720 / 720 Output: Urine 900 / 900 1999 Other: # Voids 3 Date of Last Bowel Movement 04/30/18 # Bowel Movements 0 0 Narrative: GENERAL: AO x 3 comfortable appearing SKIN: Warm and dry. HEAD: Atraumatic. Normocephalic. EYES: Pupils equal and round. No scleral icterus. No injection or drainage. NECK: Trachea midline. No JVD. CARDIOVASCULAR: Regular rate and rhythm. RESPIRATORY: No accessory muscle use. Clear to auscultation. Breath sounds equal bilaterally. GASTROINTESTINAL: Abdomen soft, non-tender, nondistended. MUSCULOSKELETAL: Extremities without clubbing, cyanosis, or edema. No obvious deformities. NEUROLOGICAL: Awake and alert. No obvious cranial nerve deficits. Motor grossly within normal limits. Normal speech. PSYCHIATRIC: Appropriate mood and affect; insight and judgment normal. Assessment and Plan - Assessment (1) Acute febrile illness Code(s): R50.9 - Fever, unspecified Status: Acute (2) SIRS (systemic inflammatory response syndrome) Code(s): R65.10 - Systemic inflammatory response syndrome (SIRS) of non- infectious origin without acute organ dysfunction Status: Acute (3) Renal transplant recipient Code(s): Z94.0 - Kidney transplant status Status: Acute (4) Diabetes Code(s): E11.9 - Type 2 diabetes mellitus without complications Status: Acute (5) Recent myocardial infarction Status: Acute - Plan Patient with history of renal transplant done in 2001, Now admitted with febrile illness. Patient has been following with ID. All cultures are negative . Continue antibiotics as per ID. On CellCept and Prograf. Creatinine is slightly better, 2.0. His baseline Creatinine is close to 1.8.
[2018-04-30] MEDS ORDERED: Benzonatate 100 MG Capsule PO PRN (23:10)
[2018-05-01] MEDS: Sod Chloride 0.9% Inj 1,000 ML IV.CONT SCH ×4 (05:34→21:49)
[2018-05-01] MEDS: Insulin NovoLOG Aspart Correctional Sugar Inj SQ SCH ×5 (05:35→20:32)
[2018-05-01] MEDS: Mycophenolate Mofetil 250 MG Capsule PO SCH ×2 (08:34→20:31)
[2018-05-01] MEDS: Metoprolol Tartrate 50 MG Tablet PO SCH (08:34)
[2018-05-01] MEDS: predniSONE 5 MG Tablet PO SCH (08:36)
[2018-05-01] MEDS: Senna/Docusate Sodium 8.6/50 MG Tablet PO SCH ×2 (08:37→20:32)
--- NOTE | 2018-05-01 11:49 | P.PNIM ---
Subjective Interval history: Patient states he is feeling better today, has remained afebrile late yesterday. He had a further discussion and he recalled that he was in [place] he visited a cavern/cave with a colleague. Physical Exam Vital signs: Last Vital Signs Temp 99.5 F 05/01/18 08:00 Pulse 74 05/01/18 10:00 Resp 18 05/01/18 08:00 BP 139/74 05/01/18 08:00 Pulse Ox 100 05/01/18 08:00 Intake & Output 04/29/18 04/30/18 05/01/18 05/02/18 06:59 06:59 06:59 06:59 Intake Total 2150 / 2150 3208 / 3208 4140 / 4140 1000 / 1000 Output Total 525 / 525 2900 / 2900 2525 / 2525 Balance 1625 / 1625 308 / 308 1615 / 1615 1000 / 1000 Weight 102.3 kg 100.5 kg 102.5 kg Narrative: GENERAL: AO x 3 comfortable appearing SKIN: Warm and dry. HEAD: Atraumatic. Normocephalic. EYES: Pupils equal and round. No scleral icterus. No injection or drainage. NECK: Trachea midline. No JVD. CARDIOVASCULAR: Regular rate and rhythm. RESPIRATORY: No accessory muscle use. Clear to auscultation. Breath sounds equal bilaterally. GASTROINTESTINAL: Abdomen soft, non-tender, nondistended. MUSCULOSKELETAL: Extremities without clubbing, cyanosis, or edema. No obvious deformities. NEUROLOGICAL: Awake and alert. No obvious cranial nerve deficits. Motor grossly within normal limits. Normal speech. PSYCHIATRIC: Appropriate mood and affect; insight and judgment normal. Results Labs CBC & Chem 7: 04/30/18 05:03 04/30/18 05:49 Labs: Microbiology 04/29/18 14:05 Blood - Peripheral Aerobic Blood Culture - Preliminary No growth in 2 days 04/29/18 14:05 Blood - Peripheral Anaerobic Blood Culture - Preliminary No growth in 2 days 04/29/18 14:00 Blood - Peripheral Aerobic Blood Culture - Preliminary No growth in 2 days 04/29/18 14:00 Blood - Peripheral Anaerobic Blood Culture - Preliminary No growth in 2 days 04/29/18 01:14 Blood - Peripheral Aerobic Blood Culture - Preliminary No growth in 2 days 04/29/18 01:14 Blood - Peripheral Anaerobic Blood Culture - Preliminary No growth in 2 days 04/29/18 01:22 Blood - Peripheral Aerobic Blood Culture - Preliminary No growth in 2 days 04/29/18 01:22 Blood - Peripheral Anaerobic Blood Culture - Preliminary No growth in 2 days 05/01/18 01:30 Urine - Clean Catch Urine Legionella Antigen - Final Presumptive negative for Legionella pneumophila serogroup 1 antigen in urine, suggesting no recent or recurrent infection. Infection due to Legionella cannot be ruled out since other serogroups and species may cause disease, antigen may not be present in urine in early infection, and the level of antigen present in the urine may be below the detection limit of the test. Imaging Imaging: Impressions Chest X-Ray 04/30/18 11:32 CONCLUSION: No acute cardiopulmonary abnormality is identified. 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, only complains of persistent dry cough Fevers have decided following antibiotic in addition of micafungin Consider his visit to [place] in [place] and the possibility of exposure to guano His empiric coverage includes Levaquin, vancomycin, micafungin Appreciate infectious disease guiding antibiotic selections h/o renal transplant, on immunosuppressive agents Patient is on CellCept and Prograf, continue at current doses No signs of renal rejection Follow daily labs DVT Prophylaxis Lovenox Disposition Patient is stable for transfer out of the ICU to [facility] _ (1) Diabetes Qualifiers: Chronic kidney disease stage: Diabetes mellitus complication detail: Diabetes mellitus complication status: Diabetes mellitus intermodal customer service insulin use : Diabetes mellitus macular edema: Diabetes mellitus type: Diabetic retinopathy severity: Laterality: Proliferative retinopathy type:
--- NOTE | 2018-05-01 12:25 | P.PNID ---
Subjective Remarks: Patient feels a lot better. Temperature is improved. Less coughing. Denies new complaints. Denies chills, headache, shortness of breath. Blood cultures has no growth. White blood cell count remain normal. Cultures remain negative. No skin rash. No difficulty voiding. Patient reports to me that he had explored underground cave while in [place] approximately 3 weeks ago. Patient called the emergency department in [place] about the blood work that was done 1 week ago He was told that all of the tests and cultures are negative. Patient presented with a high fever along with cough. The patient was recently evaluated in [place] where he had a myocardial infarction on 04/17/2018. He underwent placement of a coronary artery stent. He had traveled to [place] on business and spent time in [place] prior to going to [place] where the myocardial infarction recurrent. After he had the procedure, he reported that he had difficulty urinating and a urine catheter had to be placed. After it was removed, he stated that he had some burning. He went to [facility] because he had a low-grade fever. Blood tests were performed and he was discharged. It was felt that the fever was probably due to a viral infection. Antibiotics: Micafungin Levaquin Vancomycin. Past Medical History: PAST MEDICAL HISTORY: Renal transplantation in 2001, myocardial infarction, history of coronary stent in 04/2018. Allergies/Adverse Reactions: Allergies cefaclor Allergy (Unknown, Verified 04/29/18 00:38) Rash iodine Allergy (Unknown, Verified 04/29/18 00:38) Flushing Objective Vital Signs 04/30/18 14:00 04/30/18 16:00 04/30/18 18:00 Temperature 98.0 F Pulse Rate 72 69 93 H Respiratory Rate 22 Blood Pressure 114/71 Pulse Oximetry 100 04/30/18 20:00 04/30/18 22:00 05/01/18 00:00 Temperature 98.2 F 98.1 F Pulse Rate 72 69 81 Respiratory Rate 18 12 Blood Pressure 112/67 119/65 Pulse Oximetry 100 100 05/01/18 02:00 05/01/18 04:00 05/01/18 06:00 Temperature 98.1 F Pulse Rate 76 78 79 Respiratory Rate 16 Blood Pressure 128/73 Pulse Oximetry 100 05/01/18 08:00 05/01/18 10:00 Temperature 99.5 F Pulse Rate 75 74 Respiratory Rate 18 Blood Pressure 139/74 Pulse Oximetry 100 Intake & Output 04/30/18 05/01/18 05/01/18 18:59 06:59 18:59 Intake Total 1750 / 1750 2390 / 2390 1000 / 1000 Output Total 625 / 625 1900 / 1900 Balance 1125 / 1125 490 / 490 1000 / 1000 Weight 102.5 kg Intake: IV 1000 / 1000 2150 / 2150 1000 / 1000 NS Inj 1,000 ML @ 100 mls/hr IV 1000 / 1000 2000 / 2000 1000 / 1000 .CONT .Q10H YRN Rx#:[id number] Levaquin 750 mg Premix Inj 150 150 / 150 ML @ 100 mls/hr IV.SIG Q24H YRN Rx#:[id number] Oral 750 / 750 240 / 240 Output: Urine 625 / 625 1900 / 1900 Other: # Voids 3 Date of Last Bowel Movement 04/30/18 04/30/18 04/30/18 # Bowel Movements 2 1 04/29/18 14:05 Blood - Peripheral Aerobic Blood Culture - Preliminary No growth in 2 days 04/29/18 14:05 Blood - Peripheral Anaerobic Blood Culture - Preliminary No growth in 2 days 04/29/18 14:00 Blood - Peripheral Aerobic Blood Culture - Preliminary No growth in 2 days 04/29/18 14:00 Blood - Peripheral Anaerobic Blood Culture - Preliminary No growth in 2 days 04/29/18 01:14 Blood - Peripheral Aerobic Blood Culture - Preliminary No growth in 2 days 04/29/18 01:14 Blood - Peripheral Anaerobic Blood Culture - Preliminary No growth in 2 days 04/29/18 01:22 Blood - Peripheral Aerobic Blood Culture - Preliminary No growth in 2 days 04/29/18 01:22 Blood - Peripheral Anaerobic Blood Culture - Preliminary No growth in 2 days 05/01/18 01:30 Urine - Clean Catch Urine Legionella Antigen - Final Presumptive negative for Legionella pneumophila serogroup 1 antigen in urine, suggesting no recent or recurrent infection. Infection due to Legionella cannot be ruled out since other serogroups and species may cause disease, antigen may not be present in urine in early infection, and the level of antigen present in the urine may be below the detection limit of the test. 04/29/18 01:14 Nasal Wash Influenza Types A,B Antigen - Final Negative for FLU A and B antigen Infection due to influenza A or B cannot be ruled out since the antigen present in the sample may be below the detection limit of the test. Lab - Hematology Results 04/29/18 04/30/18 14:05 05:03 WBC 6.4 6.2 RBC 3.39 L 3.42 L Hgb 10.3 L D 10.2 L Hct 30.3 L 29.7 L MCV 89.3 D 87.0 MCH 30.4 29.9 MCHC 34.1 34.4 RDW 14.0 14.1 Plt Count 130 L D 128 L MPV 8.6 8.7 Neut % (Auto) 85.5 H 87.9 H Lymph % (Auto) 5.5 L 5.9 L [place] % (Auto) 8.6 H 5.8 Eos % (Auto) 0.1 0.1 Baso % (Auto) 0.3 0.3 Neut # (Auto) 5.4 5.4 Lymph # (Auto) 0.4 L 0.4 L [place] # (Auto) 0.6 0.4 Eos # (Auto) 0.0 0.0 Baso # (Auto) 0.0 0.0 WBC Differential . . Differential Comment Auto diff final Auto diff final Lab - Chemistry Results 04/29/18 04/29/18 04/29/18 14:05 14:05 16:56 Sodium 134 L Potassium 4.4 Chloride 104 Carbon Dioxide 20.2 L Anion Gap 10 BUN 22 H Creatinine 2.28 H Estimated GFR 30 L POC Glucose 231 H Random Glucose 271 H Lactic Acid 1.1 Calcium 7.5 L Total Bilirubin 0.5 AST 21 ALT 31 Alkaline Phosphatase 92 Total Creatine Kinase 56 Troponin I 1.10 H* Total Protein 5.7 L D Albumin 2.4 L 04/29/18 04/29/18 04/30/18 18:13 20:28 03:56 Sodium Potassium Chloride Carbon Dioxide Anion Gap BUN Creatinine Estimated GFR POC Glucose 264 H 121 H Random Glucose Lactic Acid Calcium Total Bilirubin AST ALT Alkaline Phosphatase Total Creatine Kinase Troponin I 1.00 H* Total Protein Albumin 04/30/18 04/30/18 04/30/18 05:49 08:16 12:15 Sodium 135 L Potassium 3.9 Chloride 106 Carbon Dioxide 18.9 L Anion Gap 10 BUN 20 H Creatinine 2.07 H Estimated GFR 33 L POC Glucose 166 H 227 H Random Glucose 168 H D Lactic Acid Calcium 7.6 L Total Bilirubin 0.4 AST 18 ALT 29 Alkaline Phosphatase 84 Total Creatine Kinase Troponin I Total Protein 5.7 L Albumin 2.4 L 04/30/18 04/30/18 05/01/18 16:24 21:40 01:46 Sodium Potassium Chloride Carbon Dioxide Anion Gap BUN Creatinine Estimated GFR POC Glucose 251 H 141 H 225 H Random Glucose Lactic Acid Calcium Total Bilirubin AST ALT Alkaline Phosphatase Total Creatine Kinase Troponin I Total Protein Albumin 05/01/18 05/01/18 05:32 08:26 Sodium Potassium Chloride Carbon Dioxide Anion Gap BUN Creatinine Estimated GFR POC Glucose 237 H 241 H Random Glucose Lactic Acid Calcium Total Bilirubin AST ALT Alkaline Phosphatase Total Creatine Kinase Troponin I Total Protein Albumin Imaging: ITS Impressions Chest X-Ray 04/30/18 11:32 CONCLUSION: No acute cardiopulmonary abnormality is identified. Physical Exam: PHYSICAL EXAMINATION: GENERAL: Patient is awake and alert and in no acute distress. HEENT: Head is atraumatic. Extraocular movements grossly intact. Pupils reactive to light. No icterus. No conjunctival erythema. Oropharynx with moist mucosa without lesions. NECK: Supple without adenopathy or swelling. LUNGS: Decreased breath sounds. No rhonchi heard. HEART: Regular S1 and S2. No murmurs heard. ABDOMEN: Bowel sounds present. Soft. No tenderness appreciated. No masses palpable. EXTREMITIES: No clubbing, cyanosis or edema. SKIN: No rash. The skin is warm and moist. NEUROLOGIC: No gross focal finding. PSYCHIATRIC: The patient is calm and cooperative. IV lines without evidence of infection. Assessment and Plan - Plan IMPRESSION: 1. Fever in patient with renal transplant, on immunosuppression. 2. Cough. Possibly secondary to pneumonia. Possible viral upper respiratory infection versus viral lower respiratory infection. 3. Possible fungal infection in patient who visited [place] recently prior to onset of symptoms. 4. Chronic kidney disease. RECOMMENDATIONS: 1. Continue vancomycin. 2. Continue Levaquin. 3. Continue micafungin because of the severe immunosuppression. 4. Obtain histoplasma urinary antigen. 5. Obtain fungal blood culture. 6. Monitor blood cultures. 7. Mycoplasma serology. 8. Follow CMV and EBV serology. 9. Monitor for other signs of infection.
[2018-05-01] MEDS: Enoxaparin Inj 40 MG/0.4 ML Syringe SQ SCH (12:29)
[2018-05-01] MEDS ORDERED: Vancomycin Inj 1,500 MG in Sodium Chlor 0.9% Inj 500 ML IV.SIG SCH (16:00)
--- NOTE | 2018-05-01 22:28 | P.PNNP ---
Subjective Interval history: Patient is alert, now afebrile, eating better, no SOB. Physical Exam Vital signs: Vital Signs 05/01/18 00:00 05/01/18 01:30 05/01/18 02:00 Temperature 98.1 F Pulse Rate 81 81 76 Respiratory Rate 12 21 19 Blood Pressure 119/65 122/70 Pulse Oximetry 100 100 98 05/01/18 02:30 05/01/18 03:00 05/01/18 03:30 Temperature Pulse Rate 71 70 72 Respiratory Rate 20 19 19 Blood Pressure 111/68 115/67 130/68 Pulse Oximetry 98 98 99 05/01/18 04:00 05/01/18 04:31 05/01/18 05:00 Temperature 98.1 F Pulse Rate 70 80 78 Respiratory Rate 16 21 18 Blood Pressure 119/71 140/84 128/73 Pulse Oximetry 100 100 100 05/01/18 05:30 05/01/18 06:00 05/01/18 07:00 Temperature Pulse Rate 86 79 77 Respiratory Rate 19 21 19 Blood Pressure 130/79 131/74 146/76 H Pulse Oximetry 100 100 93 L 05/01/18 08:00 05/01/18 09:00 05/01/18 10:00 Temperature 99.5 F Pulse Rate 75 74 74 Respiratory Rate 18 26 H 27 H Blood Pressure 139/74 129/71 Pulse Oximetry 100 100 100 05/01/18 10:01 05/01/18 11:00 05/01/18 11:01 Temperature Pulse Rate 75 77 78 Respiratory Rate 23 25 H 24 Blood Pressure 103/66 115/74 Pulse Oximetry 100 100 100 05/01/18 12:00 05/01/18 13:00 05/01/18 14:00 Temperature 98.8 F Pulse Rate 78 77 69 Respiratory Rate 33 H 22 22 Blood Pressure 124/77 135/78 123/73 Pulse Oximetry 100 100 100 05/01/18 15:00 05/01/18 16:00 05/01/18 17:00 Temperature 99.2 F Pulse Rate 71 66 70 Respiratory Rate 26 H 15 31 H Blood Pressure 133/73 119/70 Pulse Oximetry 100 100 05/01/18 17:01 05/01/18 18:00 05/01/18 19:00 Temperature Pulse Rate 68 65 100 H Respiratory Rate 31 H 17 27 H Blood Pressure 120/78 123/74 175/92 H Pulse Oximetry 100 100 88 L 05/01/18 20:00 Temperature 98.7 F Pulse Rate 72 Respiratory Rate 20 Blood Pressure 122/75 Pulse Oximetry 100 Intake & Output 05/01/18 05/01/18 05/02/18 06:59 18:59 06:59 Intake Total 2390 / 2390 2390 / 2390 1000 / 1000 Output Total 1900 / 1900 1650 / 1650 Balance 490 / 490 740 / 740 1000 / 1000 Weight 102.5 kg Intake: IV 2150 / 2150 1615 / 1615 1000 / 1000 NS Inj 1,000 ML @ 100 mls/hr IV 2000 / 2000 1000 / 1000 1000 / 1000 .CONT .Q10H YRN Rx#:[id number] Levaquin 750 mg Premix Inj 150 150 / 150 ML @ 100 mls/hr IV.SIG Q24H YRN Rx#:[id number] Mycamine Inj 100 MG In NS Inj 100 / 100 100 ML @ 100 mls/hr IV.SIG Q24H YRN Rx#:[id number] Vancomycin Inj 1,500 MG In NS 515 / 515 Inj 500 ML @ 250 mls/hr IV.SIG Q24H YRN Rx#:[id number] Oral 240 / 240 775 / 775 Output: Urine 1900 / 1900 1650 / 1650 Other: # Voids 3 Date of Last Bowel Movement 04/30/18 04/30/18 # Bowel Movements 1 0 Narrative: GENERAL: AO x 3 comfortable appearing SKIN: Warm and dry. HEAD: Atraumatic. Normocephalic. EYES: Pupils equal and round. No scleral icterus. No injection or drainage. NECK: Trachea midline. No JVD. CARDIOVASCULAR: Regular rate and rhythm. RESPIRATORY: No accessory muscle use. Clear to auscultation. Breath sounds equal bilaterally. GASTROINTESTINAL: Abdomen soft, non-tender, nondistended. MUSCULOSKELETAL: Extremities without clubbing, cyanosis, or edema. No obvious deformities. NEUROLOGICAL: Awake and alert. No obvious cranial nerve deficits. Motor grossly within normal limits. Normal speech. PSYCHIATRIC: Appropriate mood and affect; insight and judgment normal. Assessment and Plan - Assessment (1) Acute febrile illness Code(s): R50.9 - Fever, unspecified Status: Acute (2) SIRS (systemic inflammatory response syndrome) Code(s): R65.10 - Systemic inflammatory response syndrome (SIRS) of non- infectious origin without acute organ dysfunction Status: Acute (3) Renal transplant recipient Code(s): Z94.0 - Kidney transplant status Status: Acute (4) Diabetes Code(s): E11.9 - Type 2 diabetes mellitus without complications Status: Acute (5) Recent myocardial infarction Status: Acute - Plan Patient with history of renal transplant done in 2001, Now admitted with febrile illness. Patient has been following with ID. All cultures are negative . On CellCept and Prograf. Creatinine was 2.0, no new BMP today. His baseline Creatinine is close to 1.8. Continue antibiotics as per ID.
[2018-05-02] MEDS: Sod Chloride 0.9% Inj 1,000 ML IV.CONT SCH ×3 (02:40→20:59)
[2018-05-02] MEDS: Insulin NovoLOG Aspart Correctional Sugar Inj SQ SCH ×5 (02:45→21:00)
[2018-05-02 06:51] LABS: Hematocrit 33.4 % (39.0-51.0); Hemoglobin 11.5 gm/dL (13.0-17.0); Mean Corpuscular HGB Conc 34.4 % (32.0-36.0); Mean Corpuscular Hemoglobin 29.9 pg (27.0-34.0); Mean Corpuscular Volume 87.2 fL (80.0-100.0); Mean Platelet Volume 8.6 fL (7.0-11.0); Platelet Count 153 th/mm3 (150-450); Red Blood Count 3.83 mil/mm3 (4.50-5.90); Red Cell Distribution Width 13.8 % (11.6-17.2); White Blood Count 3.2 th/mm3 (4.0-11.0)
[2018-05-02 07:15] LABS: Calcium 8.6 mg/dL (8.5-10.1); Carbon Dioxide 18.4 meq/L (21.0-32.0); Potassium 3.4 meq/L (3.5-5.1)
[2018-05-02] MEDS: Mycophenolate Mofetil 250 MG Capsule PO SCH ×2 (09:19→20:59)
[2018-05-02] MEDS: Senna/Docusate Sodium 8.6/50 MG Tablet PO SCH ×2 (09:21→21:00)
[2018-05-02] MEDS: predniSONE 5 MG Tablet PO SCH (09:21)
[2018-05-02] MEDS: Metoprolol Tartrate 50 MG Tablet PO SCH (09:22)
--- NOTE | 2018-05-02 10:53 | P.PNIM ---
Subjective Interval history: Patient is resting comfortably today, has no new complaints. Fungal blood cultures were drawn yesterday and are growing in the lab, thus far negative. Blood cultures have remained negative. He understands that though he is feeling better and currently afebrile we need to watch him closely due to his immunocompromise state. Physical Exam Vital signs: Last Vital Signs Temp 98.8 F 05/02/18 04:00 Pulse 73 05/02/18 06:00 Resp 21 05/02/18 04:00 BP 144/81 H 05/02/18 04:00 Pulse Ox 99 05/02/18 04:00 Intake & Output 04/30/18 05/01/18 05/02/18 05/03/18 06:59 06:59 06:59 06:59 Intake Total 3208 / 3208 4240 / 4240 4210 / 4210 150 / 150 Output Total 2900 / 2900 2525 / 2525 5400 / 5400 Balance 308 / 308 1715 / 1715 -1190 / -1190 150 / 150 Weight 100.5 kg 102.5 kg 102 kg Narrative: GENERAL: AO x 3 comfortable appearing SKIN: Warm and dry. HEAD: Atraumatic. Normocephalic. EYES: Pupils equal and round. No scleral icterus. No injection or drainage. NECK: Trachea midline. No JVD. CARDIOVASCULAR: Regular rate and rhythm. RESPIRATORY: No accessory muscle use. Clear to auscultation. Breath sounds equal bilaterally. GASTROINTESTINAL: Abdomen soft, non-tender, nondistended. MUSCULOSKELETAL: Extremities without clubbing, cyanosis, or edema. No obvious deformities. NEUROLOGICAL: Awake and alert. No obvious cranial nerve deficits. Motor grossly within normal limits. Normal speech. PSYCHIATRIC: Appropriate mood and affect; insight and judgment normal. Results Labs CBC & Chem 7: 05/02/18 06:11 05/02/18 06:11 Labs: Microbiology 04/29/18 14:05 Blood - Peripheral Aerobic Blood Culture - Preliminary No growth in 2 days 04/29/18 14:05 Blood - Peripheral Anaerobic Blood Culture - Preliminary No growth in 2 days 04/29/18 14:00 Blood - Peripheral Aerobic Blood Culture - Preliminary No growth in 2 days 04/29/18 14:00 Blood - Peripheral Anaerobic Blood Culture - Preliminary No growth in 2 days 04/29/18 01:14 Blood - Peripheral Aerobic Blood Culture - Preliminary No growth in 2 days 04/29/18 01:14 Blood - Peripheral Anaerobic Blood Culture - Preliminary No growth in 2 days 04/29/18 01:22 Blood - Peripheral Aerobic Blood Culture - Preliminary No growth in 2 days 04/29/18 01:22 Blood - Peripheral Anaerobic Blood Culture - Preliminary No growth in 2 days 05/01/18 01:30 Urine - Clean Catch Urine Legionella Antigen - Final Presumptive negative for Legionella pneumophila serogroup 1 antigen in urine, suggesting no recent or recurrent infection. Infection due to Legionella cannot be ruled out since other serogroups and species may cause disease, antigen may not be present in urine in early infection, and the level of antigen present in the urine may be below the detection limit of the test. 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, only complains of persistent dry cough Fevers have decided following antibiotic in addition of micafungin Consider his visit to [place] in [place] and the possibility of exposure to gu[place] Continuing Levaquin, vancomycin, micafungin Follow bacterial and fungal blood cultures Appreciate infectious disease guiding antibiotic selections h/o renal transplant, on immunosuppressive agents Patient is on CellCept and Prograf, continue at current doses No signs of renal rejection Follow daily labs Appreciate nephrology DVT Prophylaxis Lovenox Disposition Stable for transfer to [facility]
--- NOTE | 2018-05-02 12:06 | P.PNID ---
Subjective Remarks: Patient notes that he had a lot of coughing last night. Sputum production. Temperature remains normal. Reports to me that his vision is better than it was prior to developing the fever. He notes that this new prescription for glasses made his vision very blurry. He states that he can see better now without the glasses. That he is able to read writing on the television without glasses which he could not do before. He denies eye discomfort or pain. Denies chills, headache, shortness of breath. Blood cultures has no growth. Fungal blood culture is pending. No skin rash. No difficulty voiding. Patient reports to me that he had explored underground cave while in [place] approximately 3 weeks ago. Patient called the emergency department in [place] about the blood work that was done 1 week ago He was told that all of the tests and cultures are negative. Patient presented with a high fever along with cough. The patient was recently evaluated in [place] where he had a myocardial infarction on 04/17/2018. He underwent placement of a coronary artery stent. He had traveled to [place] on business and spent time in [place] prior to going to [place] where the myocardial infarction recurrent. After he had the procedure, he reported that he had difficulty urinating and a urine catheter had to be placed. After it was removed, he stated that he had some burning. He went to [facility] because he had a low-grade fever. Blood tests were performed and he was discharged. It was felt that the fever was probably due to a viral infection. Antibiotics: Micafungin Levaquin Vancomycin. Past Medical History: PAST MEDICAL HISTORY: Renal transplantation in 2001, myocardial infarction, history of coronary stent in 04/2018. Allergies/Adverse Reactions: Allergies cefaclor Allergy (Unknown, Verified 04/29/18 00:38) Rash iodine Allergy (Unknown, Verified 04/29/18 00:38) Flushing Objective Vital Signs 05/01/18 13:00 05/01/18 14:00 05/01/18 15:00 Temperature Pulse Rate 77 69 71 Respiratory Rate 22 22 26 H Blood Pressure 135/78 123/73 133/73 Pulse Oximetry 100 100 05/01/18 16:00 05/01/18 17:00 05/01/18 17:01 Temperature 99.2 F Pulse Rate 66 70 68 Respiratory Rate 15 31 H 31 H Blood Pressure 119/70 120/78 Pulse Oximetry 100 100 100 05/01/18 18:00 05/01/18 19:00 05/01/18 20:00 Temperature 98.7 F Pulse Rate 65 100 H 72 Respiratory Rate 17 27 H 20 Blood Pressure 123/74 175/92 H 122/75 Pulse Oximetry 100 88 L 100 05/01/18 21:00 05/01/18 22:00 05/01/18 22:01 Temperature Pulse Rate 67 78 93 H Respiratory Rate 29 H 22 30 H Blood Pressure 127/89 174/90 H Pulse Oximetry 100 100 100 05/01/18 23:00 05/02/18 00:00 05/02/18 00:01 Temperature 98.7 F Pulse Rate 109 H 73 73 Respiratory Rate 47 H 23 26 H Blood Pressure 197/127 H 140/78 Pulse Oximetry 95 100 100 05/02/18 01:00 05/02/18 01:01 05/02/18 02:00 Temperature Pulse Rate 98 H 82 69 Respiratory Rate 39 H 40 H 19 Blood Pressure 180/94 H 143/84 H Pulse Oximetry 94 L 89 L 100 05/02/18 03:00 05/02/18 04:00 05/02/18 06:00 Temperature 98.8 F Pulse Rate 74 72 73 Respiratory Rate 19 21 Blood Pressure 155/80 H 144/81 H Pulse Oximetry 100 99 Intake & Output 05/01/18 05/02/18 05/02/18 18:59 06:59 18:59 Intake Total 2390 / 2390 1820 / 1820 150 / 150 Output Total 1650 / 1650 3750 / 3750 Balance 740 / 740 -1930 / -1930 150 / 150 Weight 102 kg Intake: IV 1615 / 1615 1000 / 1000 150 / 150 NS Inj 1,000 ML @ 100 mls/hr IV 1000 / 1000 1000 / 1000 .CONT .Q10H [facility] Rx#:[id number] Levaquin 750 mg Premix Inj 150 150 / 150 ML @ 100 mls/hr IV.SIG Q24H [facility] Rx#:[id number] Mycamine Inj 100 MG In NS Inj 100 / 100 100 ML @ 100 mls/hr IV.SIG Q24H [facility] Rx#:[id number] Vancomycin Inj 1,500 MG In NS 515 / 515 Inj 500 ML @ 250 mls/hr IV.SIG Q24H [facility] Rx#:[id number] Oral 775 / 775 820 / 820 Output: Urine 1650 / 1650 3750 / 3750 Other: Date of Last Bowel Movement 04/30/18 # Bowel Movements 0 04/29/18 14:05 Blood - Peripheral Aerobic Blood Culture - Preliminary No growth in 3 days 04/29/18 14:05 Blood - Peripheral Anaerobic Blood Culture - Preliminary No growth in 3 days 04/29/18 14:00 Blood - Peripheral Aerobic Blood Culture - Preliminary No growth in 3 days 04/29/18 14:00 Blood - Peripheral Anaerobic Blood Culture - Preliminary No growth in 3 days 04/29/18 01:14 Blood - Peripheral Aerobic Blood Culture - Preliminary No growth in 3 days 04/29/18 01:14 Blood - Peripheral Anaerobic Blood Culture - Preliminary No growth in 3 days 04/29/18 01:22 Blood - Peripheral Aerobic Blood Culture - Preliminary No growth in 3 days 04/29/18 01:22 Blood - Peripheral Anaerobic Blood Culture - Preliminary No growth in 3 days 05/01/18 12:52 Blood - Peripheral Blood Fungal Culture - Pending 05/01/18 12:52 Blood - Peripheral Blood Fungal Culture - Pending 05/01/18 01:30 Urine - Clean Catch Urine Legionella Antigen - Final Presumptive negative for Legionella pneumophila serogroup 1 antigen in urine, suggesting no recent or recurrent infection. Infection due to Legionella cannot be ruled out since other serogroups and species may cause disease, antigen may not be present in urine in early infection, and the level of antigen present in the urine may be below the detection limit of the test. Lab - Hematology Results 05/02/18 06:11 WBC 3.2 L RBC 3.83 L Hgb 11.5 L Hct 33.4 L MCV 87.2 MCH 29.9 MCHC 34.4 RDW 13.8 Plt Count 153 MPV 8.6 Lab - Chemistry Results 04/30/18 04/30/18 04/30/18 12:15 16:24 21:40 Sodium Potassium Chloride Carbon Dioxide Anion Gap BUN Creatinine Estimated GFR POC Glucose 227 H 251 H 141 H Random Glucose Calcium 05/01/18 05/01/18 05/01/18 01:46 05:32 08:26 Sodium Potassium Chloride Carbon Dioxide Anion Gap BUN Creatinine Estimated GFR POC Glucose 225 H 237 H 241 H Random Glucose Calcium 05/01/18 05/01/18 05/01/18 12:23 15:50 20:27 Sodium Potassium Chloride Carbon Dioxide Anion Gap BUN Creatinine Estimated GFR POC Glucose 292 H 279 H 152 H Random Glucose Calcium 05/02/18 05/02/18 05/02/18 02:45 06:11 09:17 Sodium 138 Potassium 3.4 L Chloride 109 H Carbon Dioxide 18.4 L Anion Gap 11 BUN 20 H Creatinine 1.80 H Estimated GFR 39 L POC Glucose 139 H 172 H Random Glucose 159 H Calcium 8.6 Imaging: ITS Impressions Chest X-Ray 04/30/18 11:32 CONCLUSION: No acute cardiopulmonary abnormality is identified. Physical Exam: PHYSICAL EXAMINATION: GENERAL: Awake and alert. No acute distress. HEENT: Head is atraumatic. Extraocular movements grossly intact. Pupils reactive to light. No icterus. No conjunctival erythema. Oropharynx with moist mucosa without lesions. NECK: Supple without adenopathy or swelling. LUNGS: Decreased breath sounds. No rhonchi heard. HEART: Regular S1 and S2. No murmurs heard. ABDOMEN: Bowel sounds present. Soft. No tenderness appreciated. No masses palpable. EXTREMITIES: No clubbing, cyanosis or edema. SKIN: No rash. The skin is warm and moist. NEUROLOGIC: No gross focal finding. PSYCHIATRIC: The patient is calm and cooperative. IV lines without evidence of infection. Assessment and Plan - Plan IMPRESSION: 1. Fever in patient with renal transplant, on immunosuppression. 2. Cough. Possibly secondary to pneumonia. Possible viral upper respiratory infection versus viral lower respiratory infection versus fungal infection. 3. Possible fungal infection in patient who visited underground cave recently prior to onset of symptoms. 4. Chronic kidney disease. RECOMMENDATIONS: 1. Stop vancomycin. 2. Continue Levaquin. 3. Continue micafungin because of the severe immunosuppression. 4. Follow histoplasma urinary antigen. 5. Follow fungal blood culture. 6. Monitor blood cultures. 7. Follow CMV and EBV serology. 8. Monitor for other signs of infection. Patient will need to be followed up by primary care physician and infectious disease physician once discharged. Further decision pending serologies and fungal culture.
[2018-05-02] MEDS: Enoxaparin Inj 40 MG/0.4 ML Syringe SQ SCH (13:06)
--- NOTE | 2018-05-02 14:02 | P.PNNP ---
Subjective Interval history: Patient is alert, sitting on chair, has dry cough, remain afebrile. Physical Exam Vital signs: Vital Signs 05/01/18 15:00 05/01/18 16:00 05/01/18 17:00 Temperature 99.2 F Pulse Rate 71 66 70 Respiratory Rate 26 H 15 31 H Blood Pressure 133/73 119/70 Pulse Oximetry 100 100 05/01/18 17:01 05/01/18 18:00 05/01/18 19:00 Temperature Pulse Rate 68 65 100 H Respiratory Rate 31 H 17 27 H Blood Pressure 120/78 123/74 175/92 H Pulse Oximetry 100 100 88 L 05/01/18 20:00 05/01/18 21:00 05/01/18 22:00 Temperature 98.7 F Pulse Rate 72 67 78 Respiratory Rate 20 29 H 22 Blood Pressure 122/75 127/89 Pulse Oximetry 100 100 100 05/01/18 22:01 05/01/18 23:00 05/02/18 00:00 Temperature 98.7 F Pulse Rate 93 H 109 H 73 Respiratory Rate 30 H 47 H 23 Blood Pressure 174/90 H 197/127 H Pulse Oximetry 100 95 100 05/02/18 00:01 05/02/18 01:00 05/02/18 01:01 Temperature Pulse Rate 73 98 H 82 Respiratory Rate 26 H 39 H 40 H Blood Pressure 140/78 180/94 H Pulse Oximetry 100 94 L 89 L 05/02/18 02:00 05/02/18 03:00 05/02/18 04:00 Temperature 98.8 F Pulse Rate 69 74 72 Respiratory Rate 19 19 21 Blood Pressure 143/84 H 155/80 H 144/81 H Pulse Oximetry 100 100 99 05/02/18 06:00 Temperature Pulse Rate 73 Respiratory Rate Blood Pressure Pulse Oximetry Intake & Output 05/01/18 05/02/18 05/02/18 18:59 06:59 18:59 Intake Total 2390 / 2390 1820 / 1820 150 / 150 Output Total 1650 / 1650 3750 / 3750 Balance 740 / 740 -1930 / -1930 150 / 150 Weight 102 kg Intake: IV 1615 / 1615 1000 / 1000 150 / 150 NS Inj 1,000 ML @ 100 mls/hr IV 1000 / 1000 1000 / 1000 .CONT .Q10H [facility] Rx#:[id number] Levaquin 750 mg Premix Inj 150 150 / 150 ML @ 100 mls/hr IV.SIG Q24H [facility] Rx#:[id number] Mycamine Inj 100 MG In NS Inj 100 / 100 100 ML @ 100 mls/hr IV.SIG Q24H [facility] Rx#:[id number] Vancomycin Inj 1,500 MG In NS 515 / 515 Inj 500 ML @ 250 mls/hr IV.SIG Q24H [facility] Rx#:[id number] Oral 775 / 775 820 / 820 Output: Urine 1650 / 1650 3750 / 3750 Other: Date of Last Bowel Movement 04/30/18 # Bowel Movements 0 Narrative: GENERAL: AO x 3 comfortable appearing SKIN: Warm and dry. HEAD: Atraumatic. Normocephalic. EYES: Pupils equal and round. No scleral icterus. No injection or drainage. NECK: Trachea midline. No JVD. CARDIOVASCULAR: Regular rate and rhythm. RESPIRATORY: No accessory muscle use. Clear to auscultation. Breath sounds equal bilaterally. GASTROINTESTINAL: Abdomen soft, non-tender, nondistended. MUSCULOSKELETAL: Extremities without clubbing, cyanosis, or edema. No obvious deformities. NEUROLOGICAL: Awake and alert. No obvious cranial nerve deficits. Motor grossly within normal limits. Normal speech. PSYCHIATRIC: Appropriate mood and affect; insight and judgment normal. Assessment and Plan - Assessment (1) Acute febrile illness Code(s): R50.9 - Fever, unspecified Status: Acute (2) SIRS (systemic inflammatory response syndrome) Code(s): R65.10 - Systemic inflammatory response syndrome (SIRS) of non- infectious origin without acute organ dysfunction Status: Acute (3) Renal transplant recipient Code(s): Z94.0 - Kidney transplant status Status: Acute (4) Diabetes Code(s): E11.9 - Type 2 diabetes mellitus without complications Status: Acute (5) Recent myocardial infarction Status: Acute - Plan Patient with history of renal transplant done in 2001, Now admitted with febrile illness. Patient has been following with ID. On CellCept and Prograf. Creatinine improve , now 1.8. His baseline Creatinine is close to 1.8. Continue antibiotics as per ID. All cultures remain negative.
[2018-05-02] MEDS: HYDROcodone 5 MG/Homatropine 1.5 MG Syrup 5 ML UDC PO PRN (17:34)
[2018-05-02] MEDS: Benzocaine/Menthol 15 MG/3.6 MG SF Lozenge BUCCAL PRN (17:34)
[2018-05-03] MEDS: HYDROcodone 5 MG/Homatropine 1.5 MG Syrup 5 ML UDC PO PRN ×2 (00:14→08:35)
[2018-05-03] MEDS: Benzocaine/Menthol 15 MG/3.6 MG SF Lozenge BUCCAL PRN ×2 (00:14→22:21)
[2018-05-03] MEDS: Insulin NovoLOG Aspart Correctional Sugar Inj SQ SCH ×5 (02:33→20:54)
[2018-05-03] MEDS: Sod Chloride 0.9% Inj 1,000 ML IV.CONT SCH (06:39)
[2018-05-03] MEDS: Mycophenolate Mofetil 250 MG Capsule PO SCH ×2 (08:00→20:39)
[2018-05-03 08:24] LABS: Hematocrit 31.8 % (39.0-51.0); Mean Corpuscular HGB Conc 34.6 % (32.0-36.0); Mean Corpuscular Hemoglobin 30.1 pg (27.0-34.0); Mean Corpuscular Volume 86.8 fL (80.0-100.0); Mean Platelet Volume 8.4 fL (7.0-11.0); Platelet Count 154 th/mm3 (150-450); Red Blood Count 3.66 mil/mm3 (4.50-5.90); Red Cell Distribution Width 14.1 % (11.6-17.2); White Blood Count 3.3 th/mm3 (4.0-11.0)
[2018-05-03] MEDS: predniSONE 5 MG Tablet PO SCH (08:37)
[2018-05-03] MEDS: Metoprolol Tartrate 50 MG Tablet PO SCH (08:37)
[2018-05-03 08:38] LABS: Calcium 8.4 mg/dL (8.5-10.1); Carbon Dioxide 19.6 meq/L (21.0-32.0); Potassium 3.8 meq/L (3.5-5.1)
--- NOTE | 2018-05-03 10:32 | P.PNIM ---
Subjective Interval history: 58-year-old male with fever in the context of renal transplant immunosuppression. His cough is improved with hydrocodone cough syrup. He remains afebrile, is feeling energetic, understands we are awaiting fungal culture results to help guide his care. Physical Exam Vital signs: Last Vital Signs Temp 99.4 F 05/03/18 04:00 Pulse 75 05/03/18 06:00 Resp 18 05/03/18 04:00 BP 138/76 05/03/18 04:00 Pulse Ox 99 05/03/18 08:20 Intake & Output 05/01/18 05/02/18 05/03/18 05/04/18 06:59 06:59 06:59 06:59 Intake Total 4240 / 4240 4210 / 4210 2410 / 2410 Output Total 2525 / 2525 5400 / 5400 3500 / 3500 Balance 1715 / 1715 -1190 / -1190 -1090 / -1090 Weight 102.5 kg 102 kg 101.5 kg Narrative: GENERAL: AO x 3 comfortable appearing SKIN: Warm and dry. HEAD: Atraumatic. Normocephalic. EYES: Pupils equal and round. No scleral icterus. No injection or drainage. NECK: Trachea midline. No JVD. CARDIOVASCULAR: Regular rate and rhythm. RESPIRATORY: Intermittent dry cough .no accessory muscle use. Clear to auscultation. Breath sounds equal bilaterally. GASTROINTESTINAL: Abdomen soft, non-tender, nondistended. MUSCULOSKELETAL: Extremities without clubbing, cyanosis, or edema. No obvious deformities. NEUROLOGICAL: Awake and alert. No obvious cranial nerve deficits. Motor grossly within normal limits. Normal speech. PSYCHIATRIC: Appropriate mood and affect; insight and judgment normal. Results Labs CBC & Chem 7: 05/03/18 08:01 05/03/18 08:01 Labs: Microbiology 04/29/18 01:22 Blood - Peripheral Aerobic Blood Culture - Preliminary No growth in 3 days 04/29/18 01:22 Blood - Peripheral Anaerobic Blood Culture - Preliminary No growth in 3 days 04/29/18 01:14 Blood - Peripheral Aerobic Blood Culture - Preliminary No growth in 3 days 04/29/18 01:14 Blood - Peripheral Anaerobic Blood Culture - Preliminary No growth in 3 days 04/29/18 14:05 Blood - Peripheral Aerobic Blood Culture - Preliminary No growth in 3 days 04/29/18 14:05 Blood - Peripheral Anaerobic Blood Culture - Preliminary No growth in 3 days 04/29/18 14:00 Blood - Peripheral Aerobic Blood Culture - Preliminary No growth in 3 days 04/29/18 14:00 Blood - Peripheral Anaerobic Blood Culture - Preliminary No growth in 3 days Assessment and Plan Plan Fever of unknown origin Patient denies any GI or BIG DATA LEAD symptoms, only complains of persistent dry cough Consider his visit to [place] in [place] and the possibility of exposure to guano in [place] visit Continuing Levaquin, vancomycin, micafungin Patient remains afebrile, cough symptoms improving Follow bacterial and fungal blood cultures Appreciate infectious disease guiding antibiotic selections h/o renal transplant, on immunosuppressive agents Patient is on CellCept and Prograf, continue at current doses No signs of renal rejection, creatinine at baseline level now Discontinue IV fluids Continue to follow daily labs Appreciate nephrology DVT Prophylaxis Lovenox Disposition Stable for transfer to [facility]
[2018-05-03] MEDS: Enoxaparin Inj 40 MG/0.4 ML Syringe SQ SCH (13:44)
[2018-05-03] MEDS: Senna/Docusate Sodium 8.6/50 MG Tablet PO SCH ×2 (13:44→20:40)
--- NOTE | 2018-05-03 16:47 | P.PNID ---
Subjective Remarks: Patient feels a lot better. Afebrile Cough improved after he was started on oxycodone and Tessalon Perles. Denies new complaints. Denies chills, headache, shortness of breath. Fungal blood culture has no growth so far Urine histoplasma antigen is pending White blood cell count remain normal. Cultures remain negative. No skin rash. Patient reports to me that he had explored underground [place] while in [place] approximately 3 weeks ago. Patient called the emergency department in [place] about the blood work that was done 1 week ago He was told that all of the tests and cultures are negative. Patient presented with a high fever along with cough. The patient was recently evaluated in [place] where he had a myocardial infarction on 04/17/2018. He underwent placement of a coronary artery stent. He had traveled to [place] on business and spent time in [place] prior to going to [place] where the myocardial infarction recurrent. After he had the procedure, he reported that he had difficulty urinating and a urine catheter had to be placed. After it was removed, he stated that he had some burning. He went to [facility] because he had a low-grade fever. Blood tests were performed and he was discharged. It was felt that the fever was probably due to a viral infection. Antibiotics: Micafungin Levaquin Past Medical History: PAST MEDICAL HISTORY: Renal transplantation in 2001, myocardial infarction, history of coronary stent in 04/2018. Allergies/Adverse Reactions: Allergies cefaclor Allergy (Unknown, Verified 04/29/18 00:38) Rash iodine Allergy (Unknown, Verified 04/29/18 00:38) Flushing Objective Vital Signs 05/02/18 17:00 05/02/18 17:11 05/02/18 18:00 Temperature Pulse Rate 67 72 66 Respiratory Rate 18 18 26 H Blood Pressure 121/75 121/75 Pulse Oximetry 100 99 100 05/02/18 19:00 05/02/18 20:00 05/02/18 20:19 Temperature 98.0 F Pulse Rate 77 89 Respiratory Rate 41 H 32 H Blood Pressure 127/81 142/71 H Pulse Oximetry 96 82 L 100 05/02/18 21:00 05/02/18 22:00 05/02/18 23:00 Temperature Pulse Rate 68 66 58 L Respiratory Rate 16 33 H 19 Blood Pressure 106/65 111/70 124/72 Pulse Oximetry 100 100 100 05/03/18 00:00 05/03/18 01:00 05/03/18 02:00 Temperature 98.3 F Pulse Rate 64 67 67 Respiratory Rate 05 03 17 Blood Pressure 138/74 121/74 121/72 Pulse Oximetry 100 100 100 05/03/18 04:00 05/03/18 06:00 05/03/18 08:00 Temperature 99.4 F 99.3 F Pulse Rate 72 75 93 H Respiratory Rate 18 24 Blood Pressure 138/76 129/76 Pulse Oximetry 100 100 05/03/18 08:20 05/03/18 10:00 05/03/18 12:00 Temperature 99 F Pulse Rate 75 71 Respiratory Rate 18 Blood Pressure 121/74 Pulse Oximetry 99 Intake & Output 05/02/18 05/03/18 05/03/18 18:59 06:59 18:59 Intake Total 1830 / 1830 580 / 580 Output Total 1800 / 1800 1700 / 1700 Balance 30 / 30 -1120 / -1120 Weight 101.5 kg Intake: IV 150 / 150 100 / 100 Levaquin 750 mg Premix Inj 150 150 / 150 ML @ 100 mls/hr IV.SIG Q24H [facility] Rx#:[id number] Mycamine Inj 100 MG In NS Inj 100 / 100 100 ML @ 100 mls/hr IV.SIG Q24H [facility] Rx#:[id number] Oral 1680 / 1680 480 / 480 Output: Urine 1800 / 1800 1700 / 1700 Other: Date of Last Bowel Movement 05/02/18 05/02/18 05/02/18 # Bowel Movements 1 04/29/18 14:05 Blood - Peripheral Aerobic Blood Culture - Preliminary No growth in 4 days 04/29/18 14:05 Blood - Peripheral Anaerobic Blood Culture - Preliminary No growth in 4 days 04/29/18 14:05 Blood - Peripheral Blood Fungal Culture - Pending 04/29/18 14:05 Blood - Peripheral Blood Fungal Culture - Pending 04/29/18 14:00 Blood - Peripheral Aerobic Blood Culture - Preliminary No growth in 4 days 04/29/18 14:00 Blood - Peripheral Anaerobic Blood Culture - Preliminary No growth in 4 days 04/29/18 14:00 Blood - Peripheral Blood Fungal Culture - Pending 04/29/18 14:00 Blood - Peripheral Blood Fungal Culture - Pending 04/29/18 01:14 Blood - Peripheral Aerobic Blood Culture - Preliminary No growth in 4 days 04/29/18 01:14 Blood - Peripheral Anaerobic Blood Culture - Preliminary No growth in 4 days 04/29/18 01:14 Blood - Peripheral Blood Fungal Culture - Pending 04/29/18 01:14 Blood - Peripheral Blood Fungal Culture - Pending 04/29/18 01:22 Blood - Peripheral Aerobic Blood Culture - Preliminary No growth in 4 days 04/29/18 01:22 Blood - Peripheral Anaerobic Blood Culture - Preliminary No growth in 4 days 04/29/18 01:22 Blood - Peripheral Blood Fungal Culture - Pending 04/29/18 01:22 Blood - Peripheral Blood Fungal Culture - Pending 05/01/18 12:52 Blood - Peripheral Blood Fungal Culture - Pending 05/01/18 12:52 Blood - Peripheral Blood Fungal Culture - Pending 05/01/18 01:30 Urine - Clean Catch Urine Legionella Antigen - Final Presumptive negative for Legionella pneumophila serogroup 1 antigen in urine, suggesting no recent or recurrent infection. Infection due to Legionella cannot be ruled out since other serogroups and species may cause disease, antigen may not be present in urine in early infection, and the level of antigen present in the urine may be below the detection limit of the test. Lab - Hematology Results 05/02/18 05/03/18 06:11 08:01 WBC 3.2 L 3.3 L RBC 3.83 L 3.66 L Hgb 11.5 L 11.0 L Hct 33.4 L 31.8 L MCV 87.2 86.8 MCH 29.9 30.1 MCHC 34.4 34.6 RDW 13.8 14.1 Plt Count 153 154 MPV 8.6 8.4 Hematology Comments Lab - Chemistry Results 05/01/18 05/02/18 05/02/18 20:27 02:45 06:11 Sodium 138 Potassium 3.4 L Chloride 109 H Carbon Dioxide 18.4 L Anion Gap 11 BUN 20 H Creatinine 1.80 H Estimated GFR 39 L POC Glucose 152 H 139 H Random Glucose 159 H Calcium 8.6 05/02/18 05/02/18 05/02/18 09:17 12:59 17:25 Sodium Potassium Chloride Carbon Dioxide Anion Gap BUN Creatinine Estimated GFR POC Glucose 172 H 275 H 257 H Random Glucose Calcium 05/02/18 05/03/18 05/03/18 20:57 02:28 08:01 Sodium 139 Potassium 3.8 Chloride 108 H Carbon Dioxide 19.6 L Anion Gap 11 BUN 22 H Creatinine 1.88 H Estimated GFR 37 L POC Glucose 176 H 120 H Random Glucose 154 H Calcium 8.4 L 05/03/18 05/03/18 08:02 12:43 Sodium Potassium Chloride Carbon Dioxide Anion Gap BUN Creatinine Estimated GFR POC Glucose 161 H 312 H Random Glucose Calcium Imaging: ITS Impressions Chest X-Ray 04/30/18 11:32 CONCLUSION: No acute cardiopulmonary abnormality is identified. Physical Exam: PHYSICAL EXAMINATION: GENERAL: Patient is awake and alert and in no acute distress. HEENT: Head is atraumatic. Extraocular movements grossly intact. Pupils reactive to light. No icterus. No conjunctival erythema. Oropharynx with moist mucosa without lesions. NECK: Supple without adenopathy or swelling. LUNGS: Decreased breath sounds. HEART: Regular S1 and S2. No murmurs. ABDOMEN: Bowel sounds present. Soft. No tenderness appreciated. No masses palpable. EXTREMITIES: No clubbing, cyanosis or edema. SKIN: No rash. The skin is warm and moist. NEUROLOGIC: No gross focal finding. PSYCHIATRIC: Calm and cooperative. IV lines without evidence of infection. Assessment and Plan - Plan IMPRESSION: 1. Fever in patient with renal transplant, on immunosuppression. 2. Cough. Possibly secondary to pneumonia. Possible viral upper respiratory infection versus viral lower respiratory infection. Mycoplasma IgG positive. 3. Possible fungal infection in patient who visited [place] recently prior to onset of symptoms. Rule out histoplasmosis. 4. Chronic kidney disease. RECOMMENDATIONS: 1. Continue Levaquin. 2. Continue micafungin because of the severe immunosuppression. 3. Monitor histoplasma urinary antigen. 4. Monitor fungal blood culture. I have contacted microbiology lab regarding the histoplasma antigen. Specimen has been sent out to [facility]. I will follow the results since it is very important to determine whether histoplasma is a possibility since the patient will need long-term antifungal treatment because of chronic immunosuppression for his kidney transplant. Otherwise the risk of recurrent infection. If it is negative he will be treated for mycoplasma since he improved on the Levaquin. We will continue to follow the test over the next couple of days. Patient was notified about that plan.
[2018-05-04] MEDS: Insulin NovoLOG Aspart Correctional Sugar Inj SQ SCH ×5 (04:12→21:05)
[2018-05-04 06:11] LABS: Hematocrit 30.8 % (39.0-51.0); Hemoglobin 10.7 gm/dL (13.0-17.0); Mean Corpuscular HGB Conc 34.8 % (32.0-36.0); Mean Corpuscular Hemoglobin 30.2 pg (27.0-34.0); Mean Corpuscular Volume 86.9 fL (80.0-100.0); Mean Platelet Volume 8.4 fL (7.0-11.0); Platelet Count 179 th/mm3 (150-450); Red Blood Count 3.54 mil/mm3 (4.50-5.90); White Blood Count 3.8 th/mm3 (4.0-11.0)
[2018-05-04] MEDS: Senna/Docusate Sodium 8.6/50 MG Tablet PO SCH ×2 (08:55→21:59)
[2018-05-04] MEDS: Metoprolol Tartrate 50 MG Tablet PO SCH (08:55)
[2018-05-04] MEDS: Mycophenolate Mofetil 250 MG Capsule PO SCH ×2 (08:55→21:54)
[2018-05-04] MEDS: predniSONE 5 MG Tablet PO SCH (08:55)
--- NOTE | 2018-05-04 11:24 | P.PNIM ---
Subjective Interval history: Cough remains but continues to improve daily. Mycoplasma blood testing positive for IgG negative for IgM. Cultures negative thus far. Physical Exam Vital signs: Last Vital Signs Temp 98.3 F 05/04/18 08:29 Pulse 79 05/04/18 08:29 Resp 16 05/04/18 08:29 BP 125/71 05/04/18 08:29 Pulse Ox 95 05/04/18 08:29 Intake & Output 05/02/18 05/03/18 05/04/18 05/05/18 06:59 06:59 06:59 06:59 Intake Total 4210 / 4210 2560 / 2560 250 / 250 Output Total 5400 / 5400 3500 / 3500 Balance -1190 / -1190 -940 / -940 250 / 250 Weight 102 kg 101.5 kg 101.4 kg Narrative: GENERAL: NAD, A&Ox3 HEAD: Normocephalic. NECK: Supple, trachea midline. No lymphadenopathy. EYES: No scleral icterus. No injection or drainage. CARDIOVASCULAR: Regular rate and rhythm without murmurs, gallops, or rubs. RESPIRATORY: Breath sounds equal bilaterally. No accessory muscle use. GASTROINTESTINAL: Abdomen soft, non-tender, nondistended. MUSCULOSKELETAL: No cyanosis, or edema. SKIN: Warm and dry. NEURO: No focal neurological deficits. Results Labs CBC & Chem 7: 05/04/18 05:22 05/04/18 05:22 Labs: Microbiology 04/29/18 14:05 Blood - Peripheral Aerobic Blood Culture - Final No growth in 5 days 04/29/18 14:05 Blood - Peripheral Anaerobic Blood Culture - Final No growth in 5 days 04/29/18 14:00 Blood - Peripheral Aerobic Blood Culture - Final No growth in 5 days 04/29/18 14:00 Blood - Peripheral Anaerobic Blood Culture - Final No growth in 5 days 04/29/18 01:14 Blood - Peripheral Aerobic Blood Culture - Final No growth in 5 days 04/29/18 01:14 Blood - Peripheral Anaerobic Blood Culture - Final No growth in 5 days 04/29/18 01:22 Blood - Peripheral Aerobic Blood Culture - Final No growth in 5 days 04/29/18 01:22 Blood - Peripheral Anaerobic Blood Culture - Final No growth in 5 days Assessment and Plan Plan 58-year-old male admitted secondary to respiratory distress and possible pneumonia in the presence of immunocompromise due to history of renal transplant , on immunosuppressive agents. Possible atypical pneumonia fever of unknown origin exposure [place] Continuing Levaquin, vancomycin, micafungin Clinically improving on treatment ID following Follow blood cultures h/o renal transplant, on immunosuppressive agents Continue CellCept Continue Prograf Follow renal function Nephrology following Prophylaxis Lovenox Discharge planning Once cultures are finalized, treatment plan selected, and cleared by ID, will discharge
[2018-05-04] MEDS: Enoxaparin Inj 40 MG/0.4 ML Syringe SQ SCH (12:59)
[2018-05-04 13:54] LABS: Histoplasma Antigen Result Negative (Negative); Histoplasma Antigen Value 0 ng/mL
[2018-05-04] MEDS ORDERED: Pharmacy Ordered Lab Info OTHER ONE (15:45)
[2018-05-04 17:41] LABS: Calcium 8.2 mg/dL (8.5-10.1); Carbon Dioxide 23.4 meq/L (21.0-32.0); Potassium 4.4 meq/L (3.5-5.1); Vancomycin,Trough 7.2 mcg/mL (5.0-10.0)
--- NOTE | 2018-05-04 18:26 | P.PNID ---
Subjective Remarks: Patient feels well. Afebrile Cough improved. He has occasional cough. Denies new complaints. Denies chills, headache, shortness of breath. Fungal blood culture has no growth. Urine histoplasma antigen is pending White blood cell count remain normal. Cultures remain negative. No skin rash. Patient reports to me that he had explored underground [place] while in [place] approximately 3 weeks ago. Patient called the emergency department in [place] about the blood work that was done 1 week ago He was told that all of the tests and cultures are negative. Patient presented with a high fever along with cough. The patient was recently evaluated in [place] where he had a myocardial infarction on 04/17/2018. He underwent placement of a coronary artery stent. He had traveled to [place] on business and spent time in [place] prior to going to [place] where the myocardial infarction recurrent. After he had the procedure, he reported that he had difficulty urinating and a urine catheter had to be placed. After it was removed, he stated that he had some burning. He went to [facility] because he had a low-grade fever. Blood tests were performed and he was discharged. It was felt that the fever was probably due to a viral infection. Antibiotics: Micafungin Levaquin Past Medical History: PAST MEDICAL HISTORY: Renal transplantation in 2001, myocardial infarction, history of coronary stent in 04/2018. Allergies/Adverse Reactions: Allergies cefaclor Allergy (Unknown, Verified 04/29/18 00:38) Rash iodine Allergy (Unknown, Verified 04/29/18 00:38) Flushing Objective Vital Signs 05/03/18 20:00 05/04/18 00:00 05/04/18 00:30 Temperature 98.2 F 98.9 F Pulse Rate 71 77 Respiratory Rate 18 18 18 Blood Pressure 115/69 149/80 H Pulse Oximetry 94 L 96 05/04/18 03:08 05/04/18 04:20 05/04/18 08:00 Temperature 99.2 F Pulse Rate 89 90 Respiratory Rate 18 18 Blood Pressure 135/76 Pulse Oximetry 95 05/04/18 08:29 05/04/18 12:20 05/04/18 16:00 Temperature 98.3 F 97.9 F Pulse Rate 79 77 88 Respiratory Rate 16 16 Blood Pressure 125/71 112/67 Pulse Oximetry 95 97 Intake & Output 05/03/18 05/04/18 05/04/18 18:59 06:59 18:59 Intake Total 350 / 350 Balance 350 / 350 Weight 101.4 kg Intake: IV 350 / 350 Levaquin 750 mg Premix Inj 150 150 / 150 ML @ 100 mls/hr IV.SIG Q24H YRN Rx#:[id number] Mycamine Inj 100 MG In NS Inj 200 / 200 100 ML @ 100 mls/hr IV.SIG Q24H YRN Rx#:[id number] Other: # Voids 2 Date of Last Bowel Movement 05/02/18 05/02/18 05/04/18 04/29/18 14:05 Blood - Peripheral Aerobic Blood Culture - Final No growth in 5 days 04/29/18 14:05 Blood - Peripheral Anaerobic Blood Culture - Final No growth in 5 days 04/29/18 14:05 Blood - Peripheral Blood Fungal Culture - Pending 04/29/18 14:05 Blood - Peripheral Blood Fungal Culture - Pending 04/29/18 14:00 Blood - Peripheral Aerobic Blood Culture - Final No growth in 5 days 04/29/18 14:00 Blood - Peripheral Anaerobic Blood Culture - Final No growth in 5 days 04/29/18 14:00 Blood - Peripheral Blood Fungal Culture - Pending 04/29/18 14:00 Blood - Peripheral Blood Fungal Culture - Pending 04/29/18 01:14 Blood - Peripheral Aerobic Blood Culture - Final No growth in 5 days 04/29/18 01:14 Blood - Peripheral Anaerobic Blood Culture - Final No growth in 5 days 04/29/18 01:14 Blood - Peripheral Blood Fungal Culture - Pending 04/29/18 01:14 Blood - Peripheral Blood Fungal Culture - Pending 04/29/18 01:22 Blood - Peripheral Aerobic Blood Culture - Final No growth in 5 days 04/29/18 01:22 Blood - Peripheral Anaerobic Blood Culture - Final No growth in 5 days 04/29/18 01:22 Blood - Peripheral Blood Fungal Culture - Pending 04/29/18 01:22 Blood - Peripheral Blood Fungal Culture - Pending 05/01/18 12:52 Blood - Peripheral Blood Fungal Culture - Pending 05/01/18 12:52 Blood - Peripheral Blood Fungal Culture - Pending Lab - Hematology Results 05/03/18 05/04/18 08:01 05:22 WBC 3.3 L 3.8 L RBC 3.66 L 3.54 L Hgb 11.0 L 10.7 L Hct 31.8 L 30.8 L MCV 86.8 86.9 MCH 30.1 30.2 MCHC 34.6 34.8 RDW 14.1 14.0 Plt Count 154 179 MPV 8.4 8.4 Hematology Comments Lab - Chemistry Results 05/02/18 05/03/18 05/03/18 20:57 02:28 08:01 Sodium 139 Potassium 3.8 Chloride 108 H Carbon Dioxide 19.6 L Anion Gap 11 BUN 22 H Creatinine 1.88 H Estimated GFR 37 L POC Glucose 176 H 120 H Random Glucose 154 H Calcium 8.4 L 05/03/18 05/03/18 05/03/18 08:02 12:43 17:02 Sodium Potassium Chloride Carbon Dioxide Anion Gap BUN Creatinine Estimated GFR POC Glucose 161 H 312 H 234 H Random Glucose Calcium 05/03/18 05/04/18 05/04/18 20:49 04:10 05:22 Sodium Potassium Chloride Carbon Dioxide Anion Gap BUN Creatinine 2.29 H Estimated GFR 30 L POC Glucose 286 H 116 H Random Glucose Calcium 05/04/18 05/04/18 05/04/18 08:00 12:36 16:28 Sodium 137 Potassium 4.4 Chloride 106 Carbon Dioxide 23.4 Anion Gap 8 BUN 31 H Creatinine 2.35 H Estimated GFR 29 L POC Glucose 176 H 269 H Random Glucose 306 H D Calcium 8.2 L 05/04/18 16:49 Sodium Potassium Chloride Carbon Dioxide Anion Gap BUN Creatinine Estimated GFR POC Glucose 298 H Random Glucose Calcium Imaging: ITS Impressions Chest X-Ray 04/30/18 11:32 CONCLUSION: No acute cardiopulmonary abnormality is identified. Physical Exam: PHYSICAL EXAMINATION: GENERAL: Patient is awake and alert . No acute distress. HEENT: Head is atraumatic. Extraocular movements grossly intact. Pupils reactive to light. No icterus. No conjunctival erythema. Oropharynx with moist mucosa without lesions. NECK: Supple without adenopathy or swelling. LUNGS: Decreased breath sounds. Clear. HEART: Regular S1 and S2. No murmurs. ABDOMEN: Bowel sounds present. Soft. No tenderness appreciated. No masses palpable. EXTREMITIES: No clubbing, cyanosis or edema. SKIN: No rash. The skin is warm and moist. NEUROLOGIC: No gross focal finding. PSYCHIATRIC: Calm and cooperative. IV lines without evidence of infection. Assessment and Plan - Plan IMPRESSION: 1. Fever in patient with renal transplant, on immunosuppression. 2. Cough. Possibly secondary to pneumonia. Possible viral upper respiratory infection versus viral lower respiratory infection. Mycoplasma IgG positive. Probable mycoplasma infection. Patient responded to Levaquin. Urine histoplasma antigen is negative. 3. Chronic kidney disease. Kidney transplant status. RECOMMENDATIONS: 1. Continue Levaquin p.o another 7 days. Okay to discharge tomorrow. 2. Stop micafungin He needs to arrange for patient care through a primary care physician. He tells me that he is going to be arranging for outpatient care on discharge. I will sign off now. Please call me if any further input is needed.
--- NOTE | 2018-05-04 19:58 | P.PNNP ---
Subjective Interval history: No acute complaints Physical Exam Vital signs: Vital Signs 05/03/18 20:00 05/04/18 00:00 05/04/18 00:30 Temperature 98.2 F 98.9 F Pulse Rate 71 77 Respiratory Rate 18 18 18 Blood Pressure 115/69 149/80 H Pulse Oximetry 94 L 96 05/04/18 03:08 05/04/18 04:20 05/04/18 08:00 Temperature 99.2 F Pulse Rate 89 90 Respiratory Rate 18 18 Blood Pressure 135/76 Pulse Oximetry 95 05/04/18 08:29 05/04/18 12:20 05/04/18 16:00 Temperature 98.3 F 97.9 F Pulse Rate 79 77 88 Respiratory Rate 16 16 Blood Pressure 125/71 112/67 Pulse Oximetry 95 97 05/04/18 17:01 Temperature 97.8 F Pulse Rate 69 Respiratory Rate 16 Blood Pressure 99/65 L Pulse Oximetry 98 Intake & Output 05/04/18 05/04/18 05/05/18 06:59 18:59 06:59 Intake Total 350 / 350 Balance 350 / 350 Weight 101.4 kg Intake: IV 350 / 350 Levaquin 750 mg Premix Inj 150 150 / 150 ML @ 100 mls/hr IV.SIG Q24H YRN Rx#:[id number] Mycamine Inj 100 MG In NS Inj 200 / 200 100 ML @ 100 mls/hr IV.SIG Q24H YRN Rx#:[id number] Other: # Voids 2 Date of Last Bowel Movement 05/02/18 05/04/18 - Constitutional no acute distress - Routine HEENT Exam Head: Present: normocephalic Eye: Present: EOMI ENT: Present: mucous membranes moist - Routine Neck Exam Present: supple - Routine Respiratory Exam Present: CTA bilaterally - Routine Cardiovascular Exam Present: RRR - Routine Abdominal Exam Present: soft - Routine Extremities Exam Present: pulses intact - Routine Skin Exam Present: intact - Routine Neurological Exam Present: alert, oriented X3 - Detailed Neurological Exam: Coma Scale Eye Opening: Spontaneous - Routine Psychiatric Exam Present: normal affect Assessment and Plan - Assessment (1) Acute febrile illness Code(s): R50.9 - Fever, unspecified Status: Acute (2) SIRS (systemic inflammatory response syndrome) Code(s): R65.10 - Systemic inflammatory response syndrome (SIRS) of non- infectious origin without acute organ dysfunction Status: Acute (3) Renal transplant recipient Code(s): Z94.0 - Kidney transplant status Status: Acute (4) Diabetes Code(s): E11.9 - Type 2 diabetes mellitus without complications Status: Acute (5) Recent myocardial infarction Status: Acute - Plan Patient with history of renal transplant done in 2001, Now admitted with febrile illness. Patient has been following with ID - negative for histoplasmosis, possible mycoplasma exposure vs viral respiratory infection, reponded to levaquin Plan for 7 more days PO levaquin On CellCept and Prograf. No prograf levels here - will check in AM His baseline Creatinine is close to 1.8. Creatinine 2.2 -> 2.3 yesterday. Patient notes he has not drank much fluids over last 2 days. Will order IVFs tonight. If creatinine stable in AM, ok for D/c from renal standpoint.
[2018-05-04] MEDS: Sod Chloride 0.9% Inj 1,000 ML IV.CONT SCH (21:54)
[2018-05-05] MEDS: Insulin NovoLOG Aspart Correctional Sugar Inj SQ SCH ×3 (03:00→14:03)
[2018-05-05] MEDS: Sod Chloride 0.9% Inj 1,000 ML IV.CONT SCH ×3 (03:59→13:40)
[2018-05-05] MEDS: Mycophenolate Mofetil 250 MG Capsule PO SCH (09:20)
[2018-05-05] MEDS: predniSONE 5 MG Tablet PO SCH (09:21)
[2018-05-05] MEDS: Metoprolol Tartrate 50 MG Tablet PO SCH (09:21)
[2018-05-05] MEDS: Senna/Docusate Sodium 8.6/50 MG Tablet PO SCH (09:21)
[2018-05-05 09:54] LABS: Hematocrit 28.2 % (39.0-51.0); Hemoglobin 9.9 gm/dL (13.0-17.0); Mean Corpuscular Hemoglobin 30.3 pg (27.0-34.0); Mean Corpuscular Volume 86.6 fL (80.0-100.0); Mean Platelet Volume 8.4 fL (7.0-11.0); Platelet Count 161 th/mm3 (150-450); Red Blood Count 3.25 mil/mm3 (4.50-5.90); Red Cell Distribution Width 13.9 % (11.6-17.2); White Blood Count 3.8 th/mm3 (4.0-11.0)
[2018-05-05 10:30] LABS: Alanine Aminotransferase 27 U/L (12-78); Albumin 2.7 g/dL (3.4-5.0); Alkaline Phosphatase 87 U/L (45-117); Anion Gap 13 meq/L (5-15); Aspartate Aminotransferase 16 U/L (15-37); Blood Urea Nitrogen 27 mg/dL (7-18); Calcium 8.3 mg/dL (8.5-10.1); Carbon Dioxide 18.4 meq/L (21.0-32.0); Chloride 109 meq/L (98-107); Glomerular Filtration Rate 33 mL/min (>89); Glucose,Random 172 mg/dL (74-106); Potassium 3.4 meq/L (3.5-5.1); Sodium 140 meq/L (136-145); Total Protein 5.9 g/dL (6.4-8.2)
[2018-05-05 13:08] VITALS: BP 134/74; PULSE 73; RESP 18; TEMP 97.7; O2SAT 97
--- NOTE | 2018-05-05 13:35 | P.DS ---
DS: Providers Date of admission: 04/29/18 03:44 Primary care physician: No Primary Care Physician Consults: 04/29/18 10:30 Consult to Cardiology Routine Consulting Provider: Alfonso Bueno Does the patient have a Senior Data Quality Analyst who follows them?: No Preferred Fish And Wildlife Technician:: Metal Temperer Physician Reason for Consultation: Recent [place], elevated trops Notified:: Office Spoke with:: Olivia Date Notified:: 04/29/18 Time Notified:: 10:34 Ordering Provider: KYE 04/29/18 14:27 Consult to Infectious Diseases Routine Consulting Provider: Lebron Mahmood Reason for Consultation: fever, renal transplant patient Notified:: Service Spoke with:: LYN Date Notified:: 04/29/18 Time Notified:: 14:46 Ordering Provider: SANDOVAL 04/29/18 15:48 Consult to Nephrology Routine Consulting Provider: Fadia Bansal Does the patient have a Surgery Center Administrator who follows them?: No Preferred Nephrology Supervisor Paper Products:: Metal Temperer Physician Reason for Consultation: renal transplant patient in with delgado, fever Notified:: Service Spoke with:: Lyn Date Notified:: 04/29/18 Time Notified:: 15:56 Ordering Provider: SANDOVAL Brief History from admission: 58-year-old gentleman with history of renal transplant presents to the emergency room with fever and chills. Patient states he had been traveling in [place] last week went to the emergency room with chest pain found to have non-STEMI underwent cardiac catheterization with balloon angioplasty and stenting of LAD. During that time he had a Houser catheter placed and removed prior to discharge. About 3 days later he started having low-grade fever chills, was seen in the emergency room workup was unremarkable and discharged home without any antibiotics. His symptoms continued to progress with dysuria, no abdominal pain no nausea vomiting, occasional cough, mild congestion. No hematuria or diarrhea other than his normal bowel movements. Patient states he had a similar episode from prior Houser catheterization. In the emergency room he was found to have a temperature of 103, normal WBC, BUN 24 creatinine 2.3 with a glucose of 299, and troponin of 1.11, trace hematuria and a normal chest x-ray, with no acute EKG changes. PMhx: Coronary artery disease, hypertension, polycystic kidney disease status post renal transplant, insulin-dependent diabetes, dyslipidemia PSXhx: Cardiac cath with stent to LAD, bilateral nephrectomy, renal transplant 2001, incisional hernia repair, inguinal hernia repair, SOChx: Denies tobacco, drinks alcohol rarely, FAMhx: Mother of CHF DS: Summary 58-year-old male admitted secondary to respiratory distress and possible pneumonia in the presence of immunocompromise due to history of renal transplant , on immunosuppressive agents. Possible atypical pneumonia fever of unknown origin exposure [place] Continuing Levaquin dc vancomycin, micafungin Clinically improving on treatment ID following Follow blood cultures NGTD Rpt CXR 6 weeks h/o renal transplant, on immunosuppressive agents Continue CellCept Continue Prograf Follow renal function Nephrology following Prophylaxis Lovenox Time Spent with Patient Total time spent providing and/or coordinating discharge services: 40 mins Greater than 30 minutes Exam Narrative Exam Narrative: GENERAL: Well-developed, well-nourished in no distress SKIN: Warm and dry. CARDIOVASCULAR: Regular rate and rhythm. RESPIRATORY: No accessory muscle use. Clear to auscultation. Breath sounds equal bilaterally. GASTROINTESTINAL: Abdomen soft, non-tender, nondistended. MUSCULOSKELETAL: Extremities without clubbing, cyanosis, or edema. No obvious deformities. NEUROLOGICAL: Awake and alert. No obvious cranial nerve deficits. Motor grossly within normal limits. Five out of 5 muscle strength in the arms and legs. Normal speech. Results Labs on day of discharge: Labs from last 24 hours 05/05/18 05/05/18 05/05/18 13:25 08:35 08:35 WBC 3.8 L RBC 3.25 L Hgb 9.9 L Hct 28.2 L MCV 86.6 MCH 30.3 MCHC 35.0 RDW 13.9 Plt Count 161 MPV 8.4 Sodium 140 Potassium 3.4 L D Chloride 109 H Carbon Dioxide 18.4 L Anion Gap 13 BUN 27 H Creatinine 2.09 H Estimated GFR 33 L POC Glucose 302 H Random Glucose 172 H D Calcium 8.3 L Total Bilirubin 0.5 AST 16 ALT 27 Alkaline Phosphatase 87 Total Protein 5.9 L Albumin 2.7 L Vancomycin Trough Tacrolimus Urine Histoplasma Ag U Histoplasma Ag Detec 05/05/18 05/05/18 05/04/18 08:35 03:14 21:41 WBC RBC Hgb Hct MCV MCH MCHC RDW Plt Count MPV Sodium Potassium Chloride Carbon Dioxide Anion Gap BUN Creatinine Estimated GFR POC Glucose 110 166 H Random Glucose Calcium Total Bilirubin AST ALT Alkaline Phosphatase Total Protein Albumin Vancomycin Trough Tacrolimus Pending Urine Histoplasma Ag U Histoplasma Ag Detec 05/04/18 05/04/18 05/01/18 16:49 16:28 19:30 WBC RBC Hgb Hct MCV MCH MCHC RDW Plt Count MPV Sodium 137 Potassium 4.4 Chloride 106 Carbon Dioxide 23.4 Anion Gap 8 BUN 31 H Creatinine 2.35 H Estimated GFR 29 L POC Glucose 298 H Random Glucose 306 H D Calcium 8.2 L Total Bilirubin AST ALT Alkaline Phosphatase Total Protein Albumin Vancomycin Trough 7.2 Tacrolimus Urine Histoplasma Ag 0 U Histoplasma Ag Detec Negative Impressions ITS Impressions Chest X-Ray 04/30/18 11:32 CONCLUSION: No acute cardiopulmonary abnormality is identified. Discharge Plan Discharge Disposition Patient Disposition: Discharge Home Discharge Condition Condition: Stable Discharge Order Discharge Orders: Discharge Order (Routine); Ordered 05/05/18 Ordered By: Franc Garcia Discharge Details Anticipated Discharge Date: 05/05/18 Physicians Team ED Provider: Zaida Berrios Primary Care Provider: Primary Care Lorraine Baldwin Attending Provider: Franc Garcia Other Providers: Alfonso Bueno ; Lebron Mahmood ; Fadia Bansal Rxs /Orders / Referrals /Forms Prescriptions: New hydrocodone-homatropine [Hydromet] 5-1.5 mg/5 mL Syrup 5 ml PO Q6H PRN (Reason: Cough) Qty: 30 RF: 0 levofloxacin [Levaquin] 750 mg tablet 750 mg PO DAILY 7 Days Qty: 7 RF: 0 Continue atorvastatin 80 mg Tablet 80 mg PO QPM RF: 0 tacrolimus [Prograf] 5 mg Capsule 5 mg PO Q12H RF: 0 prednisone 5 mg Tablet 5 mg PO DAILY RF: 0 clopidogrel [Plavix] 75 mg Tablet 75 mg PO DAILY RF: 0 aspirin 81 mg Tablet,Delayed Release (Dr/Ec) 81 mg PO DAILY RF: 0 glimepiride 1 mg Tablet 1 mg PO QID RF: 0 mycophenolate mofetil [CellCept] 500 mg Tablet 750 mg PO BID RF: 0 metoprolol tartrate 50 mg Tablet 50 mg PO DAILY RF: 0 multivitamin Capsule 1 cap PO QAM RF: 0 insulin degludec [Tresiba FlexTouch U-100] 100 unit/mL (3 mL) Insulin Pen 10 unit SUBCUT DAILY RF: 0 Ambulatory Orders / Order Sets / DME: Basic Metabolic Panel (Routine) Timeframe: [id number] Location: Determined by Patient Ordered By: Franc Garcia XR chest 2V PA&LAT (Routine) Timeframe: 6 Weeks Location: Determined by Patient Ordered By: Franc Garcia Referrals: Primary Care Lorraine Baldwin [Primary Care Provider] - See Instructions (1wk f/u) Donell Eduardo MD [Physician] - See Instructions (1wk f/u) Discharge Interventions Interventions: Discharge Planning - Case Management Last Done: 05/03/18 14:46 Status ED Status: Left Department
[2018-05-05] MEDS: Enoxaparin Inj 40 MG/0.4 ML Syringe SQ SCH (14:46)
== END 2018-05-05 15:00 | disposition home or self-care (01) ==
LOC: PHED 00:19 → PHEDA 03:44 → HIMC 13:50 → N05 05-03 16:12
PROVIDERS: ADMIT Internal Medicine; ATTEND Internal Medicine
DX: E78.5 Hyperlipidemia, unspecified; R50.9 Fever, unspecified; Z79.02 Long term (current) use of antithrombotics/antiplatelets; I25.2 Old myocardial infarction; D69.6 Thrombocytopenia, unspecified; R30.0 Dysuria; E11.65 Type 2 diabetes mellitus with hyperglycemia; Z79.899 Other long term (current) drug therapy; I12.9 Hypertensive chronic kidney disease with stage 1 through stage 4 chronic kidney disease, or unspecified chronic kidney disease; R19.7 Diarrhea, unspecified; E86.0 Dehydration; E11.22 Type 2 diabetes mellitus with diabetic chronic kidney disease; A49.3 Mycoplasma infection, unspecified site; Q61.3 Polycystic kidney, unspecified; Z94.0 Kidney transplant status; Z79.4 Long term (current) use of insulin; Z88.8 Allergy status to other drugs, medicaments and biological substances; Z88.1 Allergy status to other antibiotic agents; J18.9 Pneumonia, unspecified organism; Z82.49 Family history of ischemic heart disease and other diseases of the circulatory system; Z95.5 Presence of coronary angioplasty implant and graft; Z79.82 Long term (current) use of aspirin; N17.9 Acute kidney failure, unspecified; N18.4 Chronic kidney disease, stage 4 (severe); I25.10 Atherosclerotic heart disease of native coronary artery without angina pectoris; D64.9 Anemia, unspecified